=== PATIENT | male | born 1995 | race Caucasian/White ===

== ENCOUNTER 2016-06-28 11:48 | Emergency (ER) | payer BC ==
--- NOTE | 2016-06-28 12:00 | ER Document Report ---
ED Medical Screen (RME) - General Stated Complaint: BACK/SHOULDER PAIN Notes: Arm and shoulder pain feels like he may have a depleted sodium. I greeted and performed a rapid initial assessment of this patient. Comprehensive ED assessment and evaluation of the patient, analysis of test results and completion of the medical decision making process will be conducted by additional ED providers. TRAVEL OUTSIDE OF THE [place] IN LAST 30 DAYS: No COUNTRY TRAVELED TO/FROM: [facility] - Related Data Allergies/Adverse Reactions: latex [Latex] Allergy (Mild, Verified 04/20/16 14:04) ITCHY RASH Sulfa (Sulfonamide Antibiotics) Allergy (Verified 04/20/16 14:04) RASH Past Medical History - Past Medical History Cardiac Medical History: Denies: Hx Heart Attack, Hx Hypertension Pulmonary Medical History: Denies: Hx Asthma Neurological Medical History: Reports: Hx Seizures - welbutrin in july. Denies : Hx Cerebrovascular Accident GI Medical History: Denies: Hx Hepatitis, Hx Hiatal Hernia, Hx Ulcer Musculoskeltal Medical History: Reports Hx Musculoskeletal Trauma - elbow left at 7 Traumatic Medical History: Reports: Hx Fractures Infectious Medical History: Denies: Hx Hepatitis Past Surgical History: Reports: Hx Orthopedic Surgery, Hx Tonsillectomy - had strep and flu the week before. Denies: Hx Open Heart Surgery, Hx Pacemaker - Immunizations Immunizations up to date: Yes Hx Diphtheria, Pertussis, Tetanus Vaccination: Yes Physical Exam - Vital signs Vitals: Temp Pulse Resp BP Pulse Ox 98.0 F 82 16 128/72 H 100 06/28/16 11:56 06/28/16 11:56 06/28/16 11:56 06/28/16 11:56 06/28/16 11:56 Course - Vital Signs Vital signs: Temp Pulse Resp BP Pulse Ox 98.0 F 82 16 128/72 H 100 06/28/16 11:56 06/28/16 11:56 06/28/16 11:56 06/28/16 11:56 06/28/16 11:56
[2016-06-28 12:40] LABS: ALANINE AMINOTRANSFERASE 27 U/L (21-72); ALBUMIN 4.8 g/dL (3.5-5.0); ALKALINE PHOSPHATASE 64 U/L (38-126); ANION GAP 12 (5-19); ASPARTATE AMINO TRANSFERASE 20 U/L (17-59); BILIRUBIN,TOTAL 0.9 mg/dL (0.2-1.3); BLOOD UREA NITROGEN 6 mg/dL (7-20); CALCIUM 10.1 mg/dL (8.4-10.2); CARBON DIOXIDE 29 mmol/L (22-30); CHLORIDE 102 mmol/L (98-107); GLUCOSE 104 mg/dL (75-110); POTASSIUM 4.5 mmol/L (3.6-5.0); SODIUM 142.6 mmol/L (137-145); TOTAL PROTEIN 8.4 g/dL (6.3-8.2)
--- NOTE | 2016-06-28 12:40 | ER Document Report ---
HPI - HPI Patient complains to provider of: body pains, concern about electrolytes Onset: This afternoon Onset/Duration: Gradual Quality of pain: Achy Pain Level: 1 Context: Patient states that he had taken Vyvanse yesterday that was not prescribed to him that he bought off the street. Patient states today that he was very thirsty and drank to 24 ounces of water followed by 24 ounces of juice. Patient states shortly after that he had increased urination. Patient is concerned that he may have an abnormal potassium or sodium level. Patient additionally complains of left elbow pain and right upper back pain. Patient denies any cough or cold symptoms. Patient admits to smoking marijuana and cigarettes but denies any alcohol or other illicit drug use aside from occasional medications that he takes to treat his ADHD. Patient states that periodically he will take Adderall or Vyvanse that he can buy off the street but is uncertain of the purity of the medications that he buys. Patient states that he does a lot of research and that even though he is not prescribed the medications he is taking it to treat his ADHD because he does not like the side effects that the Strattera, he is prescribed, gives him. Patient does report an episode of feeling like his heart was racing earlier today, but states that has now resolved. Associated Symptoms: Body/muscle aches Exacerbated by: Denies Relieved by: Denies Similar symptoms previously: Yes Recently seen / treated by doctor: No - ROS ROS below otherwise negative: Yes Systems Reviewed and Negative: Yes All other systems reviewed and negative - CONSTITUTIONAL Constitutional: DENIES: Fever, Chills - EENT EENT: DENIES: Sore Throat - NEURO Neurology: DENIES: Headache - RESPIRATORY Respiratory: DENIES: Trouble Breathing, Coughing - GASTROINTESTINAL Gastrointestinal: DENIES: Nausea - MUSCULOSKELETAL Musculoskeletal: REPORTS: Extremity pain, Back Pain - DERM Skin Color: Normal Past Medical History - General Information source: Patient - Social History Smoking Status: Current Every Day Smoker Chew tobacco use (# tins/day): No Frequency of alcohol use: Social Drug Abuse: Marijuana Lives with: Family Family History: COPD, Malignancy Patient has suicidal ideation: No Patient has homicidal ideation: No - Past Medical History Cardiac Medical History: Denies: Hx Heart Attack, Hx Hypertension Pulmonary Medical History: Denies: Hx Asthma Neurological Medical History: Reports: Hx Seizures - welbutrin in july. Denies : Hx Cerebrovascular Accident Renal/ Medical History: Denies: Hx Peritoneal Dialysis GI Medical History: Denies: Hx Hepatitis, Hx Hiatal Hernia, Hx Ulcer Musculoskeltal Medical History: Reports Hx Musculoskeletal Trauma - elbow left at 7 Psychiatric Medical History: Reports: Hx Attention Deficit Hyperactivity Disorder Traumatic Medical History: Reports: Hx Fractures Infectious Medical History: Denies: Hx Hepatitis Past Surgical History: Reports: Hx Orthopedic Surgery, Hx Tonsillectomy - had strep and flu the week before. Denies: Hx Open Heart Surgery, Hx Pacemaker - Immunizations Immunizations up to date: Yes Hx Diphtheria, Pertussis, Tetanus Vaccination: Yes Vertical Provider Document - CONSTITUTIONAL Agree With Documented VS: Yes Exam Limitations: No Limitations General Appearance: WD/WN, No Apparent Distress - INFECTION CONTROL TRAVEL OUTSIDE OF THE [place] IN LAST 30 DAYS: No - HEENT HEENT: Atraumatic, Normocephalic. negative: Pharyngeal Exudate, Pharyngeal Tenderness, Pharyngeal Erythema, Tympanic Membrane Red, Tympanic Membrane Bulging - NECK Neck: Normal Inspection, Supple. negative: Lymphadenopathy-Left, Lymphadenopathy-Right Notes: No meningismus - RESPIRATORY Respiratory: Breath Sounds Normal, No Respiratory Distress, Chest Non-Tender O2 Sat by Pulse Oximetry: 100 - CARDIOVASCULAR Cardiovascular: Regular Rate, Regular Rhythm, No Murmur Pulses: Normal: Radial - BACK Back: Normal Inspection. negative: CVA Tenderness-Right, CVA Tenderness-Left Notes: Patient with mild tenderness with palpation of right upper thoracic back area, tenderness reproduced with palpation. Normal skin color and temperature overlying area tenderness. - MUSCULOSKELETAL/EXTREMETIES Musculoskeletal/Extremeties: MAEW, FROM, Tender - Mild tenderness to left elbow , patient with full range of motion. Patient with scars from previous surgery. Normal skin color and temperature overlying joint - NEURO Level of Consciousness: Awake, Alert, Appropriate Motor/Sensory: No Motor Deficit - DERM Integumentary: Warm, Dry Course - Re-evaluation Re-evalutation: 06/28/16 14:52 Patient reports that his symptoms have improved. Patient states that he just wanted to come to get checked because he was urinating so much this morning after drinking all of his oral fluids. Discussed with patient avoiding taking medications that are not prescribed to him that he buys off the street. Patient advised to follow-up with his mental health provider if he is needing different treatment for his ADHD symptoms. - Vital Signs Vital signs: Temp Pulse Resp BP Pulse Ox 98.0 F 82 16 128/72 H 100 06/28/16 11:56 06/28/16 11:56 06/28/16 11:56 06/28/16 11:56 06/28/16 11:56 - Laboratory Result Diagrams: 06/28/16 12:05 06/28/16 12:05 Laboratory results interpreted by me: 06/28/16 14:53 Labs- Entire Visit 06/28/16 06/28/16 06/28/16 12:05 12:05 13:51 WBC 10.0 RBC 4.85 Hgb 15.5 Hct 45.3 MCV 93 MCH 31.9 MCHC 34.2 RDW 13.2 Plt Count 233 Seg Neutrophils % 69.8 Lymphocytes % 19.3 Monocytes % 7.7 Eosinophils % 3.1 Basophils % 0.1 Absolute Neutrophils 7.0 Absolute Lymphocytes 1.9 Absolute Monocytes 0.8 Absolute Eosinophils 0.3 Absolute Basophils 0.0 Sodium 142.6 Potassium 4.5 Chloride 102 Carbon Dioxide 29 Anion Gap 12 BUN 6 L Creatinine 0.80 Est GFR ( Amer) > 60 Est GFR (Non-Af Amer) > 60 Glucose 104 Calcium 10.1 Total Bilirubin 0.9 Direct Bilirubin 0.0 AST 20 ALT 27 Alkaline Phosphatase 64 Total Protein 8.4 H Albumin 4.8 Urine Color YELLOW Urine Appearance CLOUDY Urine pH 7.0 Ur Specific Hardy 1.009 Urine Protein NEGATIVE Urine Glucose (UA) NEGATIVE Urine Ketones NEGATIVE Urine Blood NEGATIVE Urine Nitrite NEGATIVE Urine Bilirubin NEGATIVE Urine Urobilinogen NEGATIVE Ur Leukocyte Esterase NEGATIVE Urine WBC (Auto) 3 Urine RBC (Auto) 1 Amorphous Sediment Auto TRACE Urine Mucus (Auto) RARE Urine Ascorbic Acid NEGATIVE Urine Opiates Screen Urine Methadone Screen Ur Barbiturates Screen Ur Phencyclidine Scrn Ur Amphetamines Screen U Benzodiazepines Scrn Urine Cocaine Screen U Marijuana (THC) Screen 06/28/16 13:51 WBC RBC Hgb Hct MCV MCH MCHC RDW Plt Count Seg Neutrophils % Lymphocytes % Monocytes % Eosinophils % Basophils % Absolute Neutrophils Absolute Lymphocytes Absolute Monocytes Absolute Eosinophils Absolute Basophils Sodium Potassium Chloride Carbon Dioxide Anion Gap BUN Creatinine Est GFR ( Amer) Est GFR (Non-Af Amer) Glucose Calcium Total Bilirubin Direct Bilirubin AST ALT Alkaline Phosphatase Total Protein Albumin Urine Color Urine Appearance Urine pH Ur Specific Hardy Urine Protein Urine Glucose (UA) Urine Ketones Urine Blood Urine Nitrite Urine Bilirubin Urine Urobilinogen Ur Leukocyte Esterase Urine WBC (Auto) Urine RBC (Auto) Amorphous Sediment Auto Urine Mucus (Auto) Urine Ascorbic Acid Urine Opiates Screen NEGATIVE Urine Methadone Screen NEGATIVE Ur Barbiturates Screen NEGATIVE Ur Phencyclidine Scrn NEGATIVE Ur Amphetamines Screen NEGATIVE U Benzodiazepines Scrn NEGATIVE Urine Cocaine Screen NEGATIVE U Marijuana (THC) Screen UNCONFIRMED POSITIVE 06/28/16 18:50 - EKG Interpretation by Me EKG shows normal: Sinus rhythm Rate: Normal Rhythm: NSR Discharge - Discharge Clinical Impression: Myalgia, concern about electrolyte abnormality Condition: Stable Disposition: HOME, SELF-CARE Instructions: Myalagia (Muscle Pain) ([facility]), Normal Exam and Workup ([facility]) Additional Instructions: Return immediately for any new or worsening symptoms Followup with your primary care provider, LATRICE, call tomorrow to make a followup appointment Follow-up with your mental health provider Do not take medications that are not prescribed to you. Referrals: MIKHAIL RAMOS MD [Primary Care Provider] - Follow up as needed
[2016-06-28 12:57] LABS: ABSOLUTE EOSINOPHILS # (AUTO) 0.3 10^3/uL (0.0-0.6); ABSOLUTE LYMPHOCYTES (AUTO) 1.9 10^3/uL (0.5-4.7); ABSOLUTE MONOCYTES (AUTO) 0.8 10^3/uL (0.1-1.4); BASOPHILS % (AUTO) 0.1 % (0-2); EOSINOPHILS % (AUTO) 3.1 % (0-6); HEMATOCRIT 45.3 % (37.9-51.0); HEMOGLOBIN 15.5 g/dL (13.5-17.0); HGB HCT DIFFERENCE 1.2; LYMPHOCYTES % (AUTO) 19.3 % (13-45); MEAN CORPUSCULAR HEMOGLOBIN 31.9 pg (27.0-33.4); MEAN CORPUSCULAR HGB CONC 34.2 g/dL (32.0-36.0); MEAN CORPUSCULAR VOLUME 93 fl (80-97); MONOCYTES % (AUTO) 7.7 % (3-13); RED BLOOD COUNT 4.85 10^6/uL (4.35-5.55); RED CELL DISTRIBUTION WIDTH 13.2 % (11.5-14.0); SEGMENTED NEUTROPHILS % (AUTO) 69.8 % (42-78)
[2016-06-28 14:11] LABS: AMORPHOUS SEDIMENT,URINE TRACE /HPF; APPEARANCE,URINE CLOUDY; BILIRUBIN,URINE NEGATIVE (NEGATIVE); GLUCOSE, URINE NEGATIVE (NEGATIVE); KETONES,URINE NEGATIVE (NEGATIVE); LEUKOCYTE ESTERASE,URINE NEGATIVE (NEGATIVE); NITRITE,URINE NEGATIVE (NEGATIVE); PROTEIN,URINE NEGATIVE (NEGATIVE); URINE SPECIFIC GRAVITY 1.009; UROBILINOGEN,URINE NEGATIVE mg/dL (<2.0)
[2016-06-28 14:30] LABS: URINE BARBITURATES SCREEN NEGATIVE; URINE METHADONE SCREEN NEGATIVE; URINE OPIATES LOW NEGATIVE; URINE PHENCYCLIDINE SCREEN NEGATIVE
[2016-06-28 15:03] VITALS: BP 116/70
--- NOTE | 2016-06-28 22:53 | EKG REPORT ---
SEVERITY:- NORMAL ECG - SINUS RHYTHM : Confirmed by: Nathalie Thakkar MD 28-Jun-2016 22:52:42
== END 2016-06-28 14:58 | disposition home or self-care (01) ==
LOC: ER 11:48
DX: M79.1 Myalgia (principal); R35.0 Frequency of micturition; M54.89 Other dorsalgia; M79.609 Pain in unspecified limb; F17.200 Nicotine dependence, unspecified, uncomplicated; F90.9 Attention-deficit hyperactivity disorder, unspecified type
CPT/HCPCS: 36415; 80053; 80307; 81001; 85025; 93005; 93010; 99283

== ENCOUNTER 2016-07-19 05:27 | Emergency (ER) | payer BC ==
[2016-07-19] MEDS ORDERED: DEXAMETHASONE 4 MG TABLET PO ONE (08:18)
--- NOTE | 2016-07-19 08:18 | ER Document Report ---
ED General - General Chief Complaint: Flu Symptoms Stated Complaint: HEADACHE,COUGH,SORE THROAT TRAVEL OUTSIDE OF THE [place] IN LAST 30 DAYS: No COUNTRY TRAVELED TO/FROM: [facility] Patient complains to provider of: sore throat fevers chills myalgias Notes: Patient coming in for flulike symptoms ongoing for the past week. Patient states he did travel to the [facility] return in January. No other foreign travel. Patient states no other sick contacts. Patient states history of chronic strep infections. Patient states he did recently have some amoxicillin took 2 doses and they're finished up his prescription for amoxicillin for strep. Flu shot was not today. Patient also complains of some trouble with concentrating possible short-term memory loss been ongoing for months states he has been evaluated by his PCP has been referred to a psychiatrist further evaluation. Patient states today's the symptoms "are the best they have been" denies any fevers chills nausea vomiting - Related Data Allergies/Adverse Reactions: latex [Latex] Allergy (Mild, Verified 06/28/16 12:01) ITCHY RASH Sulfa (Sulfonamide Antibiotics) Allergy (Verified 06/28/16 12:01) RASH Past Medical History - Social History Smoking Status: Current Every Day Smoker Frequency of alcohol use: Social Drug Abuse: Marijuana Family History: COPD, Malignancy - Past Medical History Cardiac Medical History: Denies: Hx Heart Attack, Hx Hypertension Pulmonary Medical History: Denies: Hx Asthma Neurological Medical History: Reports: Hx Seizures - welbutrin in july. Denies : Hx Cerebrovascular Accident Renal/ Medical History: Denies: Hx Peritoneal Dialysis GI Medical History: Denies: Hx Hepatitis, Hx Hiatal Hernia, Hx Ulcer Musculoskeltal Medical History: Reports Hx Musculoskeletal Trauma - elbow left at 7 Psychiatric Medical History: Reports: Hx Attention Deficit Hyperactivity Disorder Traumatic Medical History: Reports: Hx Fractures Infectious Medical History: Denies: Hx Hepatitis Past Surgical History: Reports: Hx Orthopedic Surgery, Hx Tonsillectomy - had strep and flu the week before. Denies: Hx Open Heart Surgery, Hx Pacemaker - Immunizations Immunizations up to date: Yes Hx Diphtheria, Pertussis, Tetanus Vaccination: Yes Review of Systems - Review of Systems Constitutional: Fever, Malaise EENT: Throat pain Cardiovascular: No symptoms reported Respiratory: No symptoms reported Gastrointestinal: No symptoms reported Genitourinary: No symptoms reported Male Genitourinary: No symptoms reported Musculoskeletal: Other - Myalgias Skin: No symptoms reported Hematologic/Lymphatic: No symptoms reported Neurological/Psychological: No symptoms reported -: Yes All other systems reviewed and negative Physical Exam - Vital signs Vitals: Temp Pulse Resp BP Pulse Ox 97.9 F 96 17 134/74 H 96 07/19/16 05:31 07/19/16 05:31 07/19/16 05:31 07/19/16 05:31 07/19/16 05:31 Interpretation: Normal - General General appearance: Appears well, Alert - HEENT Head: Normocephalic, Atraumatic Eyes: Normal Conjunctiva: Normal Cornea: Normal Extraocular movements intact: Yes Eyelashes: Normal Pupils: PERRL Anterior chamber: Normal Ears: Normal External canal: Normal Tympanic membrane: Normal Sinus: Normal Nasal: Normal Mouth/Lips: Normal Mucous membranes: Normal Pharynx: Erythema Neck: Normal - Respiratory Respiratory status: No respiratory distress Chest status: Nontender Breath sounds: Normal Chest palpation: Normal - Cardiovascular Rhythm: Regular Heart sounds: Normal auscultation Murmur: No - Abdominal Inspection: Normal Distension: No distension Bowel sounds: Normal Tenderness: Nontender Organomegaly: No organomegaly - Back Back: Normal, Nontender - Extremities General upper extremity: Normal inspection, Nontender, Normal color, Normal ROM , Normal temperature General lower extremity: Normal inspection, Nontender, Normal color, Normal ROM , Normal temperature, Normal weight bearing. No: Miryam's sign - Neurological Neuro grossly intact: Yes Cognition: Normal Orientation: AAOx4 [place] Coma Scale Eye Opening: Spontaneous [place] Coma Scale Verbal: Oriented [place] Coma Scale Motor: Obeys Commands [place] Coma Scale Total: 15 Speech: Normal Motor strength normal: LUE, RUE, LLE, RLE Sensory: Normal - Psychological Associated symptoms: Normal affect, Normal mood - Skin Skin Temperature: Warm Skin Moisture: Dry Skin Color: Normal Course - Re-evaluation Re-evalutation: 07/19/16 08:50 Patient more likely has viral etiology for his symptoms. Encouraged follow-up with his primary care physician. Decubitus Decadron 8 and sore throat. Patient is to use Tylenol Motrin for pain control patient stay well hydrated. Patient will be discharged home - Vital Signs Vital signs: Temp Pulse Resp BP Pulse Ox 98.0 F 78 13 114/61 97 07/19/16 08:24 07/19/16 08:24 07/19/16 08:24 07/19/16 08:24 07/19/16 08:24 Discharge - Discharge Clinical Impression: Flu-like symptoms, Sore throat (viral) Condition: Good Disposition: HOME, SELF-CARE Instructions: Viral Syndrome ([facility]), Upper Respiratory Illness ([facility]) Additional Instructions: More likely you are suffering from a viral etiology. Return to ER symptoms worsen. You may take Tylenol Motrin for pain control. Will give you a dose of steroids today to help out with your throat pain. He can expect to feel unwell for the next 4-5 days. Please follow-up with your primary care physician.
[2016-07-19 08:25] VITALS: BP 114/61
== END 2016-07-19 08:25 | disposition home or self-care (01) ==
LOC: ER 05:27
DX: J02.8 Acute pharyngitis due to other specified organisms (principal); B97.89 Other viral agents as the cause of diseases classified elsewhere; R50.9 Fever, unspecified; R53.81 Other malaise; M79.1 Myalgia; R29.818 Other symptoms and signs involving the nervous system; F17.200 Nicotine dependence, unspecified, uncomplicated; Z88.2 Allergy status to sulfonamides; Z91.040 Latex allergy status; R00.0 Tachycardia, unspecified; Z53.20 Procedure and treatment not carried out because of patient's decision for unspecified reasons
CPT/HCPCS: 71020; 87070; 87804; 87880; 93005; 93010; 99281; 99283

== ENCOUNTER 2016-07-19 12:49 | Emergency (ER) | payer BC ==
[2016-07-19 12:54] VITALS: BP 140/76
--- NOTE | 2016-07-19 12:56 | ER Document Report ---
ED Medical Screen (RME) - General Stated Complaint: CHEST PAIN Mode of Arrival: Ambulatory Notes: Patient complains of tachycardia that started today. Patient was given a prescription for steroid feels symptoms are related to this medication. Patient was being treated for viral infection. I have greeted and performed a rapid initial assessment of this patient. A comprehensive ED assessment and evaluation of the patient, analysis of test results and completion of the medical decision making process will be conducted by additional ED providers. TRAVEL OUTSIDE OF THE [place] IN LAST 30 DAYS: No - Related Data Allergies/Adverse Reactions: latex [Latex] Allergy (Mild, Verified 07/19/16 12:54) ITCHY RASH Sulfa (Sulfonamide Antibiotics) Allergy (Verified 07/19/16 12:54) RASH Past Medical History - Past Medical History Cardiac Medical History: Denies: Hx Heart Attack, Hx Hypertension Pulmonary Medical History: Denies: Hx Asthma Neurological Medical History: Reports: Hx Seizures - welbutrin in july. Denies : Hx Cerebrovascular Accident Renal/ Medical History: Denies: Hx Peritoneal Dialysis GI Medical History: Denies: Hx Hepatitis, Hx Hiatal Hernia, Hx Ulcer Musculoskeltal Medical History: Reports Hx Musculoskeletal Trauma - elbow left at 7 Psychiatric Medical History: Reports: Hx Attention Deficit Hyperactivity Disorder Traumatic Medical History: Reports: Hx Fractures Infectious Medical History: Denies: Hx Hepatitis Past Surgical History: Reports: Hx Orthopedic Surgery, Hx Tonsillectomy - had strep and flu the week before. Denies: Hx Open Heart Surgery, Hx Pacemaker - Immunizations Immunizations up to date: Yes Hx Diphtheria, Pertussis, Tetanus Vaccination: Yes Physical Exam - Cardiovascular Rhythm: Tachycardia Heart sounds: S1 appreciated, S2 appreciated
--- NOTE | 2016-07-19 21:52 | EKG REPORT ---
SEVERITY:- OTHERWISE NORMAL ECG - SINUS TACHYCARDIA : Confirmed by: Delores Stewart 19-Jul-2016 21:51:40
== END 2016-07-19 14:10 | disposition left against medical advice (07) ==
LOC: ER 12:49
DX: R00.0 Tachycardia, unspecified (principal); B34.9 Viral infection, unspecified; Z88.2 Allergy status to sulfonamides; Z91.040 Latex allergy status; Z53.20 Procedure and treatment not carried out because of patient's decision for unspecified reasons
CPT/HCPCS: 71020; 93005; 93010; 99281

== ENCOUNTER 2016-07-21 11:36 | Emergency (ER) | payer BC ==
--- NOTE | 2016-07-21 11:57 | ER Document Report ---
ED Medical Screen (RME) - General Stated Complaint: LEFT ARM,SHOULDER PAIN,HEADACHE Mode of Arrival: Ambulatory Information source: Patient Notes: Patient complains of tachycardia for the past few days. Patient states he has had Adderall but has also taken Decadron. Patient complains of numbness to right lower leg. Patient complains of generalized fatigue. Patient complains of nausea. I have greeted and performed a rapid initial assessment of this patient. A comprehensive ED assessment and evaluation of the patient, analysis of test results and completion of the medical decision making process will be conducted by additional ED providers. TRAVEL OUTSIDE OF THE [place] IN LAST 30 DAYS: No - Related Data Allergies/Adverse Reactions: latex [Latex] Allergy (Mild, Verified 07/21/16 11:54) ITCHY RASH Sulfa (Sulfonamide Antibiotics) Allergy (Verified 07/21/16 11:54) RASH Past Medical History - Past Medical History Cardiac Medical History: Denies: Hx Heart Attack, Hx Hypertension Pulmonary Medical History: Denies: Hx Asthma Neurological Medical History: Reports: Hx Seizures - welbutrin in july. Denies : Hx Cerebrovascular Accident Renal/ Medical History: Denies: Hx Peritoneal Dialysis GI Medical History: Denies: Hx Hepatitis, Hx Hiatal Hernia, Hx Ulcer Musculoskeltal Medical History: Reports Hx Musculoskeletal Trauma - elbow left at 7 Psychiatric Medical History: Reports: Hx Attention Deficit Hyperactivity Disorder Traumatic Medical History: Reports: Hx Fractures Infectious Medical History: Denies: Hx Hepatitis Past Surgical History: Reports: Hx Orthopedic Surgery, Hx Tonsillectomy - had strep and flu the week before. Denies: Hx Open Heart Surgery, Hx Pacemaker - Immunizations Immunizations up to date: Yes Hx Diphtheria, Pertussis, Tetanus Vaccination: Yes Physical Exam - Vital signs Vitals: Temp Pulse Resp BP Pulse Ox 97.6 F 106 H 14 127/67 H 100 07/21/16 11:39 07/21/16 11:39 07/21/16 11:39 07/21/16 11:39 07/21/16 11:39 - Cardiovascular Rhythm: Tachycardia - 104 Heart sounds: S1 appreciated, S2 appreciated Course - Vital Signs Vital signs: Temp Pulse Resp BP Pulse Ox 97.6 F 106 H 14 127/67 H 100 07/21/16 11:39 07/21/16 11:39 07/21/16 11:39 07/21/16 11:39 07/21/16 11:39
[2016-07-21 12:35] LABS: ABSOLUTE EOSINOPHILS # (AUTO) 0.1 10^3/uL (0.0-0.6); ABSOLUTE LYMPHOCYTES (AUTO) 1.6 10^3/uL (0.5-4.7); ABSOLUTE MONOCYTES (AUTO) 0.9 10^3/uL (0.1-1.4); ABSOLUTE NEUT (AUTO) 5.4 10^3/uL (1.7-8.2); BASOPHILS % (AUTO) 0.3 % (0-2); EOSINOPHILS % (AUTO) 1.8 % (0-6); HEMATOCRIT 42.2 % (37.9-51.0); HEMOGLOBIN 14.8 g/dL (13.5-17.0); HGB HCT DIFFERENCE 2.2; LYMPHOCYTES % (AUTO) 20.2 % (13-45); MEAN CORPUSCULAR HEMOGLOBIN 32.4 pg (27.0-33.4); MEAN CORPUSCULAR HGB CONC 35.1 g/dL (32.0-36.0); MEAN CORPUSCULAR VOLUME 92 fl (80-97); RED BLOOD COUNT 4.57 10^6/uL (4.35-5.55); RED CELL DISTRIBUTION WIDTH 13.1 % (11.5-14.0); SEGMENTED NEUTROPHILS % (AUTO) 66.7 % (42-78); WHITE BLOOD COUNT 8.1 10^3/uL (4.0-10.5)
[2016-07-21 12:37] LABS: AMORPHOUS SEDIMENT,URINE TRACE /HPF; APPEARANCE,URINE TURBID; BILIRUBIN,URINE NEGATIVE (NEGATIVE); GLUCOSE, URINE NEGATIVE (NEGATIVE); KETONES,URINE NEGATIVE (NEGATIVE); LEUKOCYTE ESTERASE,URINE NEGATIVE (NEGATIVE); NITRITE,URINE NEGATIVE (NEGATIVE); PROTEIN,URINE NEGATIVE (NEGATIVE); URINE SPECIFIC GRAVITY 1.017; UROBILINOGEN,URINE NEGATIVE mg/dL (<2.0)
[2016-07-21 12:44] LABS: ALANINE AMINOTRANSFERASE 27 U/L (21-72); ALBUMIN 4.8 g/dL (3.5-5.0); ALKALINE PHOSPHATASE 50 U/L (38-126); ANION GAP 11 (5-19); ASPARTATE AMINO TRANSFERASE 18 U/L (17-59); BLOOD UREA NITROGEN 14 mg/dL (7-20); CALCIUM 10.1 mg/dL (8.4-10.2); CARBON DIOXIDE 30 mmol/L (22-30); CHLORIDE 102 mmol/L (98-107); CREATININE RESULT 0.85 mg/dL (0.52-1.25); GLUCOSE 67 mg/dL (75-110); POTASSIUM 4.6 mmol/L (3.6-5.0); SODIUM 142.8 mmol/L (137-145); TOTAL PROTEIN 7.7 g/dL (6.3-8.2)
[2016-07-21 12:50] LABS: URINE BARBITURATES SCREEN NEGATIVE; URINE METHADONE SCREEN NEGATIVE; URINE OPIATES LOW NEGATIVE; URINE PHENCYCLIDINE SCREEN NEGATIVE
--- NOTE | 2016-07-21 14:13 | ER Document Report ---
ED General - General Chief Complaint: Palpitations Stated Complaint: LEFT ARM,SHOULDER PAIN,HEADACHE Mode of Arrival: Ambulatory Information source: Patient Notes: 20 yr old male with hx of anxiety and sore throat presents with concerns of drug interaction between the decadron given 2 days ago and the adderal he is coming off of 2 days ago. pt notes palpitations, right foot paresthesia. TRAVEL OUTSIDE OF THE [place] IN LAST 30 DAYS: No - HPI Onset: Just prior to arrival Onset/Duration: Sudden Quality of pain: No pain Severity: Mild Pain Level: 1 Associated symptoms: Other Exacerbated by: Denies Relieved by: Denies Similar symptoms previously: Yes Recently seen / treated by doctor: Yes - Related Data Allergies/Adverse Reactions: latex [Latex] Allergy (Mild, Verified 07/21/16 11:54) ITCHY RASH Sulfa (Sulfonamide Antibiotics) Allergy (Verified 07/21/16 11:54) RASH Past Medical History - General Information source: Patient - Social History Smoking Status: Current Every Day Smoker Cigarette use (# per day): No Chew tobacco use (# tins/day): Yes Smoking Education Provided: No Family History: COPD, Malignancy Patient has suicidal ideation: No Patient has homicidal ideation: No - Past Medical History Cardiac Medical History: Denies: Hx Heart Attack, Hx Hypertension Pulmonary Medical History: Denies: Hx Asthma Neurological Medical History: Reports: Hx Seizures - welbutrin in july. Denies : Hx Cerebrovascular Accident Renal/ Medical History: Denies: Hx Peritoneal Dialysis GI Medical History: Denies: Hx Hepatitis, Hx Hiatal Hernia, Hx Ulcer Musculoskeltal Medical History: Reports Hx Musculoskeletal Trauma - elbow left at 6 Psychiatric Medical History: Reports: Hx Attention Deficit Hyperactivity Disorder Traumatic Medical History: Reports: Hx Fractures Infectious Medical History: Denies: Hx Hepatitis Past Surgical History: Reports: Hx Orthopedic Surgery, Hx Tonsillectomy - had strep and flu the week before. Denies: Hx Open Heart Surgery, Hx Pacemaker - Immunizations Immunizations up to date: Yes Hx Diphtheria, Pertussis, Tetanus Vaccination: Yes Review of Systems - Review of Systems Notes: REVIEW OF SYSTEMS: CONSTITUTIONAL : Denies fever, chills, or sweats. Denies recent illness. EENT: admits to sore throat CARDIOVASCULAR: Denies chest pain. Denies palpitations or racing or irregular heart beat. Denies ankle edema. RESPIRATORY: Denies cough, cold, or chest congestion. Denies shortness of breath, difficulty breathing, or wheezing. GASTROINTESTINAL: Denies abdominal pain or distention. Denies nausea, vomiting , or diarrhea. Denies blood in vomitus, stools, or per rectum. Denies black, tarry stools. Denies constipation. GENITOURINARY: Denies difficulty urinating, painful urination, burning, frequency, blood in urine, or discharge. MUSCULOSKELETAL: Denies back or neck pain or stiffness. Denies joint pain or swelling. SKIN: Denies rash, lesions or sores. HEMATOLOGIC : Denies easy bruising or bleeding. LYMPHATIC: Denies swollen, enlarged glands. NEUROLOGICAL: paresthesia right leg PSYCHIATRIC: Denies anxiety or stress. Denies depression, suicidal ideation, or homicidal ideation. ALL OTHER SYSTEMS REVIEWED AND NEGATIVE. Dictation was performed using [employer] voice recognition software PHYSICAL EXAMINATION: GENERAL: Well-appearing, well-nourished and in no acute distress. HEAD: Atraumatic, normocephalic. EYES: Pupils equal round and reactive to light, extraocular movements intact, sclera anicteric, conjunctiva are normal. ENT: Nares patent, oropharynx clear without exudates. Moist mucous membranes. NECK: Normal range of motion, supple without lymphadenopathy LUNGS: Breath sounds clear to auscultation bilaterally and equal. No wheezes rales or rhonchi. HEART: Regular rate and rhythm without murmurs ABDOMEN: Soft, nontender, nondistended abdomen. No guarding, no rebound. No masses appreciated. Musculoskeletal: Normal range of motion, no pitting or edema. No cyanosis. NEUROLOGICAL: Cranial nerves grossly intact. Normal speech, normal gait. Normal sensory, motor exams PSYCH: Normal mood, normal affect. SKIN: right leg post surgical changes Physical Exam - Vital signs Vitals: Temp Pulse Resp BP Pulse Ox 97.6 F 106 H 14 127/67 H 100 07/21/16 11:39 07/21/16 11:39 07/21/16 11:39 07/21/16 11:39 07/21/16 11:39 Course - Re-evaluation Re-evalutation: 07/21/16 14:11 Physical examination notes no significant abnormality, patient appears to have anxiety and this is a component of it. I do not believe there is any interaction between the Adderall that he is off of as well as the Decadron that he was given. Patient looks well is resting comfortably vital signs are stable and is in no distress After performing a Medical Screening Examination, I estimate there is LOW risk for ACUTE CORONARY SYNDROME, RESPIRATORY FAILURE, SEPSIS OR MENINGITIS, thus I consider the discharge disposition reasonable. The patient and I have discussed the diagnosis and risks, and we agree with discharging home with close follow- up. We also discussed returning to the Emergency Department immediately if new or worsening symptoms occur. We have discussed the symptoms which are most concerning (e.g., changing or worsening pain, trouble swallowing or breathing, neck stiffness, fever) that necessitate immediate return. - Vital Signs Vital signs: Temp Pulse Resp BP Pulse Ox 97.6 F 106 H 14 127/67 H 100 07/21/16 11:39 07/21/16 11:39 07/21/16 11:39 07/21/16 11:39 07/21/16 11:39 - Laboratory Result Diagrams: 07/21/16 12:05 07/21/16 12:05 Laboratory results interpreted by me: 07/21/16 07/21/16 12:05 12:05 Glucose 67 L Urine Ascorbic Acid 20 H Discharge - Discharge Clinical Impression: Medication reaction Condition: Stable Disposition: HOME, SELF-CARE Instructions: Palpitations (Irregular or Rapid Heartrate) ([facility]) Additional Instructions: Follow up with your physician tomorrow for further care or return to the ED IMMEDIATELY if symptoms worsen or new concerns occur
[2016-07-21 14:31] VITALS: BP 106/58
--- NOTE | 2016-07-21 22:00 | EKG REPORT ---
SEVERITY:- NORMAL ECG - SINUS RHYTHM : Confirmed by: Nathalie Thakkar MD 21-Jul-2016 21:59:34
== END 2016-07-21 14:20 | disposition home or self-care (01) ==
LOC: ER 11:36
DX: R00.2 Palpitations (principal); R20.2 Paresthesia of skin; T50.905A Adverse effect of unspecified drugs, medicaments and biological substances, initial encounter; J02.9 Acute pharyngitis, unspecified; F17.200 Nicotine dependence, unspecified, uncomplicated; Z88.2 Allergy status to sulfonamides; Z91.040 Latex allergy status; Z98.890 Other specified postprocedural states
CPT/HCPCS: 36415; 80053; 80307; 81001; 85025; 93005; 93010; 99285

== ENCOUNTER 2016-07-25 14:35 | Emergency (ER) | payer BC ==
--- NOTE | 2016-07-25 14:51 | ER Document Report ---
ED Medical Screen (RME) - General Stated Complaint: WEAKNESS Notes: 20 yo male c/o chronic weakness, headache, blurred vision, ear pain, sore throat , rash, swollen lymph nodes, cough, palpitations, abdominal pain, constipation/ diarrhea, dysuria, joint pain, intermittant fevers, chills, and fatigue. Pt seen on 07/21 for same and twice on 07/19 for same followed by [facility] pt is concerned he might have Lyme Dz TRAVEL OUTSIDE OF THE [place] IN LAST 30 DAYS: No - Related Data Allergies/Adverse Reactions: latex [Latex] Allergy (Mild, Verified 07/21/16 11:54) ITCHY RASH Sulfa (Sulfonamide Antibiotics) Allergy (Verified 07/21/16 11:54) RASH Past Medical History - Past Medical History Cardiac Medical History: Denies: Hx Heart Attack, Hx Hypertension Pulmonary Medical History: Denies: Hx Asthma Neurological Medical History: Reports: Hx Seizures - welbutrin in july. Denies : Hx Cerebrovascular Accident Renal/ Medical History: Denies: Hx Peritoneal Dialysis GI Medical History: Denies: Hx Hepatitis, Hx Hiatal Hernia, Hx Ulcer Musculoskeltal Medical History: Reports Hx Musculoskeletal Trauma - elbow left at 6 Psychiatric Medical History: Reports: Hx Attention Deficit Hyperactivity Disorder Traumatic Medical History: Reports: Hx Fractures Infectious Medical History: Denies: Hx Hepatitis Past Surgical History: Reports: Hx Orthopedic Surgery, Hx Tonsillectomy - had strep and flu the week before. Denies: Hx Open Heart Surgery, Hx Pacemaker - Immunizations Immunizations up to date: Yes Hx Diphtheria, Pertussis, Tetanus Vaccination: Yes Physical Exam - Vital signs Vitals: Temp Pulse Resp BP Pulse Ox 97.6 F 106 H 14 140/88 H 100 07/25/16 14:40 07/25/16 14:40 07/25/16 14:40 07/25/16 14:40 07/25/16 14:40 Course - Vital Signs Vital signs: Temp Pulse Resp BP Pulse Ox 97.6 F 106 H 14 140/88 H 100 07/25/16 14:40 07/25/16 14:40 07/25/16 14:40 07/25/16 14:40 07/25/16 14:40
[2016-07-25 15:53] LABS: ABSOLUTE EOSINOPHILS # (AUTO) 0.2 10^3/uL (0.0-0.6); ABSOLUTE LYMPHOCYTES (AUTO) 1.2 10^3/uL (0.5-4.7); ABSOLUTE MONOCYTES (AUTO) 0.9 10^3/uL (0.1-1.4); ABSOLUTE NEUT (AUTO) 5.3 10^3/uL (1.7-8.2); BASOPHILS % (AUTO) 0.2 % (0-2); HEMATOCRIT 45.6 % (37.9-51.0); HEMOGLOBIN 16.1 g/dL (13.5-17.0); HGB HCT DIFFERENCE 2.7; MEAN CORPUSCULAR HEMOGLOBIN 32.6 pg (27.0-33.4); MEAN CORPUSCULAR HGB CONC 35.3 g/dL (32.0-36.0); MEAN CORPUSCULAR VOLUME 92 fl (80-97); MONOCYTES % (AUTO) 11.9 % (3-13); RED BLOOD COUNT 4.93 10^6/uL (4.35-5.55); RED CELL DISTRIBUTION WIDTH 13.1 % (11.5-14.0); SEGMENTED NEUTROPHILS % (AUTO) 69.9 % (42-78); WHITE BLOOD COUNT 7.7 10^3/uL (4.0-10.5)
[2016-07-25 16:13] LABS: ALANINE AMINOTRANSFERASE 31 U/L (21-72); ALBUMIN 5.3 g/dL (3.5-5.0); ALKALINE PHOSPHATASE 62 U/L (38-126); ANION GAP 17 (5-19); ASPARTATE AMINO TRANSFERASE 19 U/L (17-59); BLOOD UREA NITROGEN 9 mg/dL (7-20); CALCIUM 10.4 mg/dL (8.4-10.2); CARBON DIOXIDE 27 mmol/L (22-30); CHLORIDE 99 mmol/L (98-107); CREATININE RESULT 0.83 mg/dL (0.52-1.25); GLUCOSE 88 mg/dL (75-110); POTASSIUM 4.9 mmol/L (3.6-5.0); SODIUM 143.2 mmol/L (137-145); TOTAL PROTEIN 8.6 g/dL (6.3-8.2)
[2016-07-25 16:14] LABS: ALCOHOL < 10 mg/dL (NONE DETECTED)
[2016-07-25 16:26] LABS: APPEARANCE,URINE CLEAR; BILIRUBIN,URINE NEGATIVE (NEGATIVE); GLUCOSE, URINE NEGATIVE (NEGATIVE); KETONES,URINE NEGATIVE (NEGATIVE); LEUKOCYTE ESTERASE,URINE NEGATIVE (NEGATIVE); NITRITE,URINE NEGATIVE (NEGATIVE); PROTEIN,URINE NEGATIVE (NEGATIVE); URINE SPECIFIC GRAVITY 1.002; UROBILINOGEN,URINE NEGATIVE mg/dL (<2.0)
--- NOTE | 2016-07-25 16:30 | ER Document Report ---
ED General - General Chief Complaint: General Weakness Stated Complaint: WEAKNESS Mode of Arrival: Ambulatory Information source: Patient Notes: 20-year-old male presents with complaints of headache sore throat earaches enlarged lymph nodes in the neck chest pain shortness of breath abdominal pain side pain body aches joint aches. Patient has been seen here multiple times TRAVEL OUTSIDE OF THE [place] IN LAST 30 DAYS: No - HPI Onset: Other - 1 year duration Onset/Duration: Persistent Quality of pain: Achy Severity: Mild Pain Level: 1 Associated symptoms: Other Exacerbated by: Denies Relieved by: Denies Similar symptoms previously: Yes Recently seen / treated by doctor: Yes - states pcp has tested him for everything - Related Data Allergies/Adverse Reactions: latex [Latex] Allergy (Mild, Verified 07/21/16 11:54) ITCHY RASH Sulfa (Sulfonamide Antibiotics) Allergy (Verified 07/21/16 11:54) RASH Past Medical History - Social History Smoking Status: Current Every Day Smoker Cigarette use (# per day): Yes Chew tobacco use (# tins/day): No Smoking Education Provided: No Frequency of alcohol use: Occasional Drug Abuse: Marijuana Family History: COPD, Malignancy Patient has suicidal ideation: No Patient has homicidal ideation: No - Past Medical History Cardiac Medical History: Denies: Hx Heart Attack, Hx Hypertension Pulmonary Medical History: Denies: Hx Asthma Neurological Medical History: Reports: Hx Seizures - welbutrin in july. Denies : Hx Cerebrovascular Accident Renal/ Medical History: Denies: Hx Peritoneal Dialysis GI Medical History: Denies: Hx Hepatitis, Hx Hiatal Hernia, Hx Ulcer Musculoskeltal Medical History: Reports Hx Musculoskeletal Trauma - elbow left at 6 Psychiatric Medical History: Reports: Hx Attention Deficit Hyperactivity Disorder Traumatic Medical History: Reports: Hx Fractures Infectious Medical History: Denies: Hx Hepatitis Past Surgical History: Reports: Hx Orthopedic Surgery, Hx Tonsillectomy - had strep and flu the week before. Denies: Hx Open Heart Surgery, Hx Pacemaker - Immunizations Immunizations up to date: Yes Hx Diphtheria, Pertussis, Tetanus Vaccination: Yes Review of Systems - Review of Systems Notes: ALL OTHER SYSTEMS REVIEWED AND NEGATIVE. Dictation was performed using [email or web address] voice recognition software PHYSICAL EXAMINATION: GENERAL: Well-appearing, well-nourished and in no acute distress. HEAD: Atraumatic, normocephalic. EYES: Pupils equal round and reactive to light, extraocular movements intact, sclera anicteric, conjunctiva are normal. ENT: Nares patent, oropharynx clear without exudates. Moist mucous membranes. NECK: Normal range of motion, supple without lymphadenopathy LUNGS: Breath sounds clear to auscultation bilaterally and equal. No wheezes rales or rhonchi. HEART: Regular rate and rhythm without murmurs ABDOMEN: Soft, nontender, nondistended abdomen. No guarding, no rebound. No masses appreciated. Musculoskeletal: Normal range of motion, no pitting or edema. No cyanosis. NEUROLOGICAL: Cranial nerves grossly intact. Normal speech, normal gait. Normal sensory, motor exams PSYCH: Normal mood, normal affect. SKIN: Warm, Dry, normal turgor, no rashes or lesions noted. Physical Exam - Vital signs Vitals: Temp Pulse Resp BP Pulse Ox 97.6 F 106 H 14 140/88 H 100 07/25/16 14:40 07/25/16 14:40 07/25/16 14:40 07/25/16 14:40 07/25/16 14:40 Course - Re-evaluation Re-evalutation: 07/25/16 16:30 Given the patient has been seen multiple times for similar complaints and the patient appears to have a laundry list which she admits to of medical problems with no specific diagnosis a mental health evaluation is appropriate 07/25/16 17:03 Patient was seen by mental health, they agree with my assessment. Patient is not happy with this assessment He wishes to be discharge and will be discharged since he is at no harm to himself or others After performing a Medical Screening Examination, I estimate there is LOW risk for ACUTE CORONARY SYNDROME, RESPIRATORY FAILURE, SEPSIS OR MENINGITIS, thus I consider the discharge disposition reasonable. The patient and I have discussed the diagnosis and risks, and we agree with discharging home with close follow- up. We also discussed returning to the Emergency Department immediately if new or worsening symptoms occur. We have discussed the symptoms which are most concerning (e.g., changing or worsening pain, trouble swallowing or breathing, neck stiffness, fever) that necessitate immediate return. - Vital Signs Vital signs: Temp Pulse Resp BP Pulse Ox 97.6 F 106 H 14 140/88 H 100 07/25/16 14:40 07/25/16 14:40 07/25/16 14:40 07/25/16 14:40 07/25/16 14:40 - Laboratory Result Diagrams: 07/25/16 15:32 07/25/16 15:32 Laboratory results interpreted by me: 07/25/16 15:32 Calcium 10.4 H Total Protein 8.6 H Albumin 5.3 H Salicylates < 1.0 L Acetaminophen < 10 L Discharge - Discharge Clinical Impression: Somatic complaints, multiple Condition: Stable Disposition: HOME, SELF-CARE Additional Instructions: Please follow-up with the care plan provided to you by our mental health or return immediately if there are any other concerns Referrals: NAKUL CASTELLON MD [Primary Care Provider] - Follow up tomorrow
[2016-07-25 16:41] LABS: URINE BARBITURATES SCREEN NEGATIVE; URINE METHADONE SCREEN NEGATIVE; URINE OPIATES LOW NEGATIVE; URINE PHENCYCLIDINE SCREEN NEGATIVE
[2016-07-25 17:13] VITALS: BP 152/82
--- NOTE | 2016-07-25 20:03 | PSYCHOLOGICAL NOTE ---
Psych Note - Psych Note Psych Note: Patient c/o general weakness, headache, occasional blurry vision, ear pain, throat pain, generalized rash, swollen lymph nodes, cough, intermittent productive cough, heart palpitations at times, back pain, abdominal pain, constipation/diarrhea alternating, kidney pain with urination, frequent urination,body pain worse in his knees.Intermittent fevers, and chills/fatigue. Patient suspects port graham disease. States, "My physician recommended port graham disease test". Patient states he has been seen multiple times in the ED for the same symptoms over the past few months. Patient states he is seen by [facility]. Patient states that he has been suffering from a viral infection longer than 2 months. He continued to state he has not had any success in identifying what is wrong with him; however, a year ago he had strep and it took over 2 months testing before the strep infection was identified. When asked if he finished his medication, he states "I'm not good at that." When asked for clarification he states that he "doesn't take medications" until they are complete; "I have difficulty finishing things." He stated that a few months ago he stayed in an abandoned home which resulted in bug bites all over his body. He discloses he came to [facility] and received medication; however, he did not finish that medication either. When asked why he did not finish his medications he stated that he "started to feel better but then he did not feel better later." Clinician asked for clarification and the patient repeated that he stopped taking his medication because he felt better but admitted that he started to feel sick again later. Patient was unwilling or unable to see the correlation between stopping his medication and being sick again. When asked if the patient was following up with his primary care physician the patient stated that she told him the only thing he has not been tested for was port graham disease, and he can take that test or she could refer the patient to a mental health provider. The patient stated he did not get tested for port graham disease at that time because he needed to "research it" since he didn't think he had the symptoms. He states that he now wants to be tested for port graham disease because he has looked into it now. Patient disclosed that he smokes marijuana approximately twice a week and approximately 1-2 packs cigarettes a day. When asked if his symptoms are worse before or after he smokes, he states "they're worse after smoking but sometimes it's not worse." Patient stated he went to [facility] and got sick from the water and eating raw llanos. When asked about his schooling he disclosed he tried to get into the but "couldn't because he needed so many waivers and it was just too much work." Patient then disclosed the reason he went to [facility] was joined their since he could not join the here in the [place]. He informed clinician that this was legal has he had to talk to the FBI when he returned. Patient disclosed concerned that he may at that dysentery while he was in the [facility]. Patient's brother Troy [phone] stated he is the patient's older brother. He confirmed the patient traveled to [facility] for a short time but does not know what he went for. He disclosed that when the patient was younger he remembers the patient going to the doctor a lot but remembers "a lot of it was unsubstantiated." He disclose the patient had difficulties in school; "it was socially and attention issue." Patient was alert and orientated to person, place, time and circumstance. Mood is irritable with flat affect. Patient denies suicidal and homicidal ideation. Patient denies auditory and visual hallucinations; no delusions are noted. Thought process is organized; however, thought content was obsessive and perseverative on health. conversational speech was with in normal rate tone and prosody. Eye contact was never made; patient laid in bed and looked at the ceiling during the evaluation. Intellectual abilities appear to be within normal range. Attention and concentration are good. Insight, judgment and impulse control are fair. 300.82 (F45.1) Somatic symptom disorder Impression/plan: Patient is psychiatrically clear for discharge; he does not meet the criteria for IVC per [place] GS 122 C. Patient is concerned with physical ailments and has been seen in the ED 4 times this week and a total of 11 times in the last 4 months in addition to reported visits to his primary care provider with no resolution of his concerns. With information provided by patient's brother this appears to be a re-occurring problem the patient suffers from since childhood and supports the diagnosis of somatic symptom disorder with an unknown secondary gain. Dr. Apple was consult on the care and management of this patient; attending physician is in agreement with recommendations and dispositions.
[2016-07-28 14:55] LABS: LYME DISEASE IGG AND IGM AB <0.91 ISR (0.00-0.90)
== END 2016-07-25 17:10 | disposition home or self-care (01) ==
LOC: ER 14:35
DX: F45.1 Undifferentiated somatoform disorder (principal); R53.1 Weakness; R51 Headache; M54.2 Cervicalgia; R06.02 Shortness of breath; R10.9 Unspecified abdominal pain; M79.1 Myalgia; F17.210 Nicotine dependence, cigarettes, uncomplicated; Z91.040 Latex allergy status; Z88.2 Allergy status to sulfonamides
CPT/HCPCS: 36415; 80053; 80307; 81001; 85025; 86617; 86618; 99285

== ENCOUNTER 2016-09-27 15:25 | Emergency (ER) | payer BC ==
[2016-09-27] MEDS ORDERED: LIDOCAINE 1% INJ-PF (10 MG/ML) 30 ML SDV INJ ONE (16:22)
[2016-09-27] MEDS ORDERED: AZITHROMYCIN 250 MG TABLET PO ONE (16:22)
[2016-09-27] MEDS ORDERED: CEFTRIAXONE INJ 250 MG VIAL IM ONE (16:22)
--- NOTE | 2016-09-27 16:36 | ER Document Report ---
ED GI/ - General Chief Complaint: STD Exposure Stated Complaint: GENITIAL ISSUES Mode of Arrival: Ambulatory Information source: Patient TRAVEL OUTSIDE OF THE [place] IN LAST 30 DAYS: No - HPI Patient complains to provider of: Other - Rash Notes: 09/27/16 16:31 Patient arrives with complaints of rash to his penis. Patient states that he had unprotected intercourse approximately 5 days ago, 2-3 days ago he noticed some blistering rash to his penis. He contacted his partner, she states that she has a history of herpes. He complains of some mild discomfort to the end of his penis as well. He denies any penile discharge or dysuria. No fevers. No abdominal pain. No nausea, vomiting, diarrhea. He denies any chest pain or shortness of breath. He has no other complaints at this home. - Related Data Allergies/Adverse Reactions: latex [Latex] Allergy (Mild, Verified 09/27/16 15:27) ITCHY RASH Sulfa (Sulfonamide Antibiotics) Allergy (Verified 09/27/16 15:27) RASH Past Medical History - Social History Smoking Status: Current Every Day Smoker Chew tobacco use (# tins/day): No Frequency of alcohol use: None Drug Abuse: Marijuana Family History: COPD, Malignancy Patient has suicidal ideation: No Patient has homicidal ideation: No - Past Medical History Cardiac Medical History: Denies: Hx Heart Attack, Hx Hypertension Pulmonary Medical History: Denies: Hx Asthma Neurological Medical History: Reports: Hx Seizures - welbutrin in july. Denies : Hx Cerebrovascular Accident Renal/ Medical History: Denies: Hx Peritoneal Dialysis GI Medical History: Denies: Hx Hepatitis, Hx Hiatal Hernia, Hx Ulcer Musculoskeltal Medical History: Reports Hx Musculoskeletal Trauma - elbow left at 6 Psychiatric Medical History: Reports: Hx Attention Deficit Hyperactivity Disorder Traumatic Medical History: Reports: Hx Fractures Infectious Medical History: Denies: Hx Hepatitis Past Surgical History: Reports: Hx Orthopedic Surgery, Hx Tonsillectomy - had strep and flu the week before. Denies: Hx Open Heart Surgery, Hx Pacemaker - Immunizations Immunizations up to date: Yes Hx Diphtheria, Pertussis, Tetanus Vaccination: Yes - unknown Review of Systems - Review of Systems -: Yes All other systems reviewed and negative Physical Exam - Notes Notes: GENERAL: alert, cooperative, nontoxic, no distress. HEAD: normocephalic, atraumatic EYES: conjunctiva pink without discharge, no external redness or swelling. EARS: no external swelling, no external redness NOSE: atraumatic, no external swelling MOUTH/THROAT: mucous membranes moist and pink, posterior pharynx without erythema, swelling, exudate. No trismus or drooling. NECK: soft, supple, full range of motion, no meningismus. CHEST: no distress, lungs clear and equal throughout. No wheezing, rales, rhonchi. CARDIAC: regular rate and rhythm, no murmur, normal capillary refill, normal pulses. No peripheral edema noted. ABDOMEN: Soft, nontender. BACK: full range of motion, no CVA tenderness. EXTREMITIES: full range of motion of all extremities. No redness, no swelling. NEURO: alert and oriented x 3, no focal deficits, full range of motion of all extremities. PYSCH: appropriate mood, affect. Patient is cooperative. SKIN: pink, warm, dry. : Patient has an uncircumcised penis. There is no drainage noted. The patient is noted to have several clusters of red based vesicular lesions and ulcerations to the penis consistent with herpes. Testicular exam is benign with no tenderness or mass. Remainder of the exam is unremarkable. Course - Re-evaluation Re-evalutation: 09/27/16 16:33 Patient is nontoxic. Stable vitals. The patient had unprotected intercourse approximately 5 days ago broke out with a rash about 3 days ago. His partner. Has a history of herpes. He has a rash consistent with herpes. This will be his first outbreak. GC chlamydia culture was obtained and is currently pending. The patient will be prophylactically treated with Zithromax and Rocephin. We'll call if his results are positive. The patient will be started on acyclovir for his herpes outbreak. He was instructed to always use condoms. 2 avoid sexual intercourse if he is having an outbreak. The patient is noted to have elevated blood pressure during today's emergency department visit. The patient was informed of this finding. The patient was instructed that this may be related to pre-hypertension and requires further evaluation with a primary care provider. The patient has no hypertensive symptoms at this time. The patient's emergency department workup and current diagnosis were explained to the patient and or family. Follow-up instructions were provided. Medications if prescribed were discussed. Instructions for when to return to the emergency department including specific worrisome symptoms were discussed with the patient and/or family. 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 Always use condoms. Avoid sexual intercourse if you have lesions. Follow-up with your doctor for HIV and syphilis testing. Follow-up sooner for increased pain, fever, redness, any further concerns. Your blood pressure was elevated during today's visit. Have this rechecked with your doctor. Prescriptions: Acyclovir [Acyclovir 400 mg Tablet] 400 mg PO TID #30 tablet Forms: Elevated Blood Pressure
[2016-09-27 18:43] LABS: CHLAM PCR NOT DETECTED (NOT DETECT)
== END 2016-09-27 16:45 | disposition home or self-care (01) ==
LOC: ER 15:25
DX: A60.00 Herpesviral infection of urogenital system, unspecified (principal); R21 Rash and other nonspecific skin eruption; Z20.2 Contact with and (suspected) exposure to infections with a predominantly sexual mode of transmission
CPT/HCPCS: 99283; 96372; 87491; 87591; J3490; J0696

== ENCOUNTER 2016-10-01 19:27 | Emergency (ER) | payer BC ==
--- NOTE | 2016-10-01 21:59 | ER Document Report ---
ED Extremity Problem, Lower - General Chief Complaint: Leg Pain Stated Complaint: PAIN,NUMBNESS IN LEGS, FEET Time seen by provider: 21:49 Mode of Arrival: Ambulatory Information source: Patient Notes: 20-year-old male presents to ED for complain of severe shooting pain to his legs and under his chest with burning feeling or irritation to his legs. He states this started 2 days ago he's been taken a second liter for gentle herpes the last 7 days. He states that he thinks this is an allergic reaction to his acyclovir. TRAVEL OUTSIDE OF THE [place] IN LAST 30 DAYS: No - HPI Patient complains to provider of: Pain. No: Injury - Related Data Allergies/Adverse Reactions: latex [Latex] Allergy (Mild, Verified 09/27/16 15:27) ITCHY RASH Sulfa (Sulfonamide Antibiotics) Allergy (Verified 09/27/16 15:27) RASH Past Medical History - Social History Family History: COPD, Malignancy Patient has suicidal ideation: No Patient has homicidal ideation: No - Past Medical History Cardiac Medical History: Denies: Hx Heart Attack, Hx Hypertension Pulmonary Medical History: Denies: Hx Asthma Neurological Medical History: Reports: Hx Seizures - welbutrin in july. Denies : Hx Cerebrovascular Accident Renal/ Medical History: Denies: Hx Peritoneal Dialysis GI Medical History: Denies: Hx Hepatitis, Hx Hiatal Hernia, Hx Ulcer Musculoskeltal Medical History: Reports Hx Musculoskeletal Trauma - elbow left at 7 Psychiatric Medical History: Reports: Hx Attention Deficit Hyperactivity Disorder Traumatic Medical History: Reports: Hx Fractures Infectious Medical History: Denies: Hx Hepatitis Past Surgical History: Reports: Hx Orthopedic Surgery, Hx Tonsillectomy - had strep and flu the week before. Denies: Hx Open Heart Surgery, Hx Pacemaker - Immunizations Immunizations up to date: Yes Hx Diphtheria, Pertussis, Tetanus Vaccination: Yes - unknown Physical Exam - Vital signs Vitals: Temp Pulse Resp BP Pulse Ox 98.6 F 87 18 129/80 H 98 10/01/16 19:35 10/01/16 19:35 10/01/16 19:35 10/01/16 19:35 10/01/16 19:35 Course - Vital Signs Vital signs: Temp Pulse Resp BP Pulse Ox 98.6 F 87 18 129/80 H 98 10/01/16 19:35 10/01/16 19:35 10/01/16 19:35 10/01/16 19:35 10/01/16 19:35
--- NOTE | 2016-10-01 22:03 | ER Document Report ---
ED Medical Screen (RME) - General Chief Complaint: Leg Pain Stated Complaint: PAIN,NUMBNESS IN LEGS, FEET Time seen by provider: 22:01 Mode of Arrival: Ambulatory Information source: Patient Notes: 20-year-old male presents to ED for severe shooting pain to his right quadricep and down his legs. He also has pain under his diaphragm for the last 2 days. He states he feels like his skin is burning and very irritated. States she's been on acyclovir for the last week and those symptoms started 2 days ago and he feels that this is a reaction to the acyclovir. He states he also has a low creatinine and vitamin D level according to his primary doctor. He states he also has a history of abuse of Adderall that he was prescribed for his ADD and depression. States he has a history of viruses that never got treated and multiple other problems that he is not able to explain. States his primary doctors tried to start blood work on this but nobody really looks inside to make sure what's going on with him. States he would like some blood work EKG chest x-ray and a MRI to see with hormone inside of his body. Explained to the patient that we do not do MRIs without a reason besides that he wants to see inside of his body. Consulted with Dr. Bermudez who stated that he could have the EKG chest x-ray and blood work as well as a urine and be seen by another provider to follow up with these results. I have greeted and performed a rapid initial assessment of this patient. A comprehensive ED assessment and evaluation of the patient, analysis of test results and completion of medical decision making process will be conducted by an additional ED providers. TRAVEL OUTSIDE OF THE [place] IN LAST 30 DAYS: No - Related Data Allergies/Adverse Reactions: latex [Latex] Allergy (Mild, Verified 09/27/16 15:27) ITCHY RASH Sulfa (Sulfonamide Antibiotics) Allergy (Verified 09/27/16 15:27) RASH Past Medical History - Past Medical History Cardiac Medical History: Denies: Hx Heart Attack, Hx Hypertension Pulmonary Medical History: Denies: Hx Asthma Neurological Medical History: Reports: Hx Seizures - welbutrin in july. Denies : Hx Cerebrovascular Accident Renal/ Medical History: Denies: Hx Peritoneal Dialysis GI Medical History: Denies: Hx Hepatitis, Hx Hiatal Hernia, Hx Ulcer Musculoskeltal Medical History: Reports Hx Musculoskeletal Trauma - elbow left at 7 Psychiatric Medical History: Reports: Hx Attention Deficit Hyperactivity Disorder Traumatic Medical History: Reports: Hx Fractures Infectious Medical History: Denies: Hx Hepatitis Past Surgical History: Reports: Hx Orthopedic Surgery, Hx Tonsillectomy - had strep and flu the week before. Denies: Hx Open Heart Surgery, Hx Pacemaker - Immunizations Immunizations up to date: Yes Hx Diphtheria, Pertussis, Tetanus Vaccination: Yes - unknown Physical Exam - Vital signs Vitals: Temp Pulse Resp BP Pulse Ox 98.6 F 87 18 129/80 H 98 10/01/16 19:35 10/01/16 19:35 10/01/16 19:35 10/01/16 19:35 10/01/16 19:35 Course - Vital Signs Vital signs: Temp Pulse Resp BP Pulse Ox 98.6 F 87 18 129/80 H 98 10/01/16 19:35 10/01/16 19:35 10/01/16 19:35 10/01/16 19:35 10/01/16 19:35
--- NOTE | 2016-10-01 22:23 | ER Document Report ---
ED General - General Time seen by provider: 22:20 Mode of Arrival: Ambulatory TRAVEL OUTSIDE OF THE [place] IN LAST 30 DAYS: No <ELINOR BERMAN - Last Filed: 10/02/16 05:39> <CHERI LANE - Last Filed: 10/02/16 05:48> - General Chief Complaint: Leg Pain Stated Complaint: PAIN,NUMBNESS IN LEGS, FEET Notes: Patient is a 20-year-old male that comes emergency department for several different complaints. He states he is having pain in his legs, specifically in the left leg in the hamstring area and shooting down towards his left ankle, he also reports some intermittent pains under his diaphragm, reports burning sensation of his skin, he states he was having pain shooting down his left shoulder area but this resolved. Symptoms started 2 days ago. He has been taking acyclovir for the past week for genital herpes outbreak, he was also given penicillin, azithromycin. Patient states he also stopped using Adderall after using it clinic symptoms degree 4 months ago and wonders if this is related. Patient states he is afraid that something physically is wrong with him and he wants to get back into the but is worried that he won't be able to do so. Patient denies any fevers, states the only area of pain at this time is his left hamstring area, denies injuries to this area. Only surgeries are orthopedic, he denies any other medical history. (ELINOR BERMAN) - Related Data Allergies/Adverse Reactions: latex [Latex] Allergy (Mild, Verified 09/27/16 15:27) ITCHY RASH Sulfa (Sulfonamide Antibiotics) Allergy (Verified 09/27/16 15:27) RASH Past Medical History - General Information source: Patient - Social History Smoking Status: Never Smoker Frequency of alcohol use: None Drug Abuse: None Lives with: Family Family History: COPD, Malignancy Patient has suicidal ideation: No Patient has homicidal ideation: No - Past Medical History Cardiac Medical History: Denies: Hx Heart Attack, Hx Hypertension Pulmonary Medical History: Denies: Hx Asthma Neurological Medical History: Reports: Hx Seizures - welbutrin in july. Denies : Hx Cerebrovascular Accident Renal/ Medical History: Denies: Hx Peritoneal Dialysis GI Medical History: Denies: Hx Hepatitis, Hx Hiatal Hernia, Hx Ulcer Musculoskeltal Medical History: Reports Hx Musculoskeletal Trauma - elbow left at 7 Psychiatric Medical History: Reports: Hx Attention Deficit Hyperactivity Disorder Traumatic Medical History: Reports: Hx Fractures Infectious Medical History: Denies: Hx Hepatitis Past Surgical History: Reports: Hx Orthopedic Surgery, Hx Tonsillectomy - had strep and flu the week before. Denies: Hx Open Heart Surgery, Hx Pacemaker - Immunizations Immunizations up to date: Yes Hx Diphtheria, Pertussis, Tetanus Vaccination: Yes - unknown <WEDROMARIOMONICAELINOR Last Filed: 10/02/16 05:39> Review of Systems - Review of Systems Constitutional: No symptoms reported EENT: No symptoms reported Cardiovascular: No symptoms reported Respiratory: No symptoms reported Gastrointestinal: See HPI Genitourinary: No symptoms reported Male Genitourinary: No symptoms reported Musculoskeletal: See HPI Skin: See HPI Hematologic/Lymphatic: No symptoms reported Neurological/Psychological: No symptoms reported <WEDROMARIOMONICAELINOR Filed: 10/02/16 05:39> Physical Exam - Vital signs Interpretation: Normal - General General appearance: Appears well, Alert In distress: None - Patient sitting on the bed with no signs of distress, alert and well-appearing - HEENT Head: Normocephalic, Atraumatic Eyes: Normal Conjunctiva: Normal Extraocular movements intact: Yes Eyelashes: Normal Pupils: PERRL Nasal: Normal Mouth/Lips: Normal Mucous membranes: Normal Pharynx: Normal Neck: Normal - Respiratory Respiratory status: No respiratory distress Chest status: Nontender Breath sounds: Normal. No: Decreased air movement, Wheezing Chest palpation: Normal - Cardiovascular Rhythm: Regular. No: Tachycardia Heart sounds: Normal auscultation, S1 appreciated, S2 appreciated Murmur: No - Abdominal Inspection: Normal Distension: No distension Bowel sounds: Normal Tenderness: Nontender. No: Tender, Guarding Organomegaly: No organomegaly - Back Back: Normal, Nontender - Extremities General upper extremity: Normal inspection, Nontender, Normal color, Normal ROM , Normal temperature General lower extremity: Other - Old scars of the bilateral calves of the lower extremity, no swelling, abnormal coloration, noted painful palpation, or abnormal findings. Normal distal neurovascular exam - Neurological Neuro grossly intact: Yes Cognition: Normal Orientation: AAOx4 [place] Coma Scale Eye Opening: Spontaneous Usha Coma Scale Verbal: Oriented Usha Coma Scale Motor: Obeys Commands Usha Coma Scale Total: 15 Speech: Normal Motor strength normal: LUE, RUE, LLE, RLE Sensory: Normal - Psychological Associated symptoms: Normal affect, Normal mood - Skin Skin Temperature: Warm Skin Moisture: Dry Skin Color: Normal <ELINOR BERMAN - Last Filed: 10/02/16 05:39> Course - Laboratory Result Diagrams: 10/01/16 22:34 10/01/16 22:34 <ELINOR BERMAN - Last Filed: 10/02/16 05:39> - Laboratory Result Diagrams: 10/01/16 22:34 10/01/16 22:34 <[address] L[address] - Last Filed: 10/02/16 05:48> - Re-evaluation Re-evalutation: Very well-appearing patient with unremarkable vitals, unremarkable workup, presents with nonspecific unrelated symptoms. Very unremarkable physical exam. Low suspicion of any acute abnormalities. Could have symptoms from the antivirals, patient states he has already decided to quit that acyclovir, states his symptoms are much better in relation to the outbreak. I provided patient with a copy of all his results for additional follow-up, discussed follow-up and return precautions, patient states satisfaction and agreement. (ELINOR BERMAN) - Vital Signs Vital signs: Temp Pulse Resp BP Pulse Ox 97.6 F 59 L 18 133/76 H 98 10/02/16 00:03 10/02/16 00:03 10/02/16 00:03 10/02/16 00:03 10/02/16 00:03 - Laboratory Laboratory results interpreted by me: 10/01/16 22:34 WBC 11.0 H Discharge <ELINOR BERMAN - Last Filed: 10/02/16 05:39> <CHERI LANE - Last Filed: 10/02/16 05:48> - Discharge Clinical Impression: Body aches Condition: Stable Disposition: HOME, SELF-CARE Additional Instructions: Your symptoms might be related to antiviral side effects (not allergy). This should resolve with time. Your workup and examination shows no concerning abnormalities. Follow-up with primary care. Return to the emergency department for any concerning symptoms including swelling of your lower extremity, redness, fever, or any other concerning symptoms. Referrals: ELVIN BUI, ZANDRAC [Primary Care Provider] - Follow up as needed
[2016-10-01 22:49] LABS: ABSOLUTE EOSINOPHILS # (AUTO) 0.2 10^3/uL (0.0-0.6); ABSOLUTE LYMPHOCYTES (AUTO) 2.3 10^3/uL (0.5-4.7); ABSOLUTE MONOCYTES (AUTO) 0.9 10^3/uL (0.1-1.4); ABSOLUTE NEUT (AUTO) 7.6 10^3/uL (1.7-8.2); BASOPHILS % (AUTO) 0.1 % (0-2); EOSINOPHILS % (AUTO) 2.1 % (0-6); HEMATOCRIT 41.2 % (37.9-51.0); HEMOGLOBIN 14.4 g/dL (13.5-17.0); LYMPHOCYTES % (AUTO) 20.8 % (13-45); MEAN CORPUSCULAR HEMOGLOBIN 31.8 pg (27.0-33.4); MEAN CORPUSCULAR HGB CONC 35.1 g/dL (32.0-36.0); MEAN CORPUSCULAR VOLUME 91 fl (80-97); RED BLOOD COUNT 4.54 10^6/uL (4.35-5.55); RED CELL DISTRIBUTION WIDTH 13.6 % (11.5-14.0)
[2016-10-01 23:10] LABS: ALANINE AMINOTRANSFERASE 26 U/L (21-72); ALBUMIN 4.7 g/dL (3.5-5.0); ALKALINE PHOSPHATASE 55 U/L (38-126); ANION GAP 15 (5-19); ASPARTATE AMINO TRANSFERASE 23 U/L (17-59); BILIRUBIN,DIRECT 0.3 mg/dL (0.0-0.4); BILIRUBIN,TOTAL 1.1 mg/dL (0.2-1.3); BLOOD UREA NITROGEN 11 mg/dL (7-20); CALCIUM 9.8 mg/dL (8.4-10.2); CARBON DIOXIDE 27 mmol/L (22-30); CHLORIDE 101 mmol/L (98-107); CREATINE KINASE 90 U/L (55-170); GLUCOSE 93 mg/dL (75-110); LIPASE 31.2 U/L (23-300); POTASSIUM 4.4 mmol/L (3.6-5.0); SODIUM 142.5 mmol/L (137-145); TOTAL PROTEIN 7.8 g/dL (6.3-8.2)
[2016-10-01 23:21] LABS: CREATINE KINASE MB 0.54 ng/mL (<4.55)
[2016-10-01 23:22] LABS: TROPONIN I < 0.012 ng/mL
[2016-10-02 00:08] VITALS: BP 133/76
--- NOTE | 2016-10-02 08:03 | EKG REPORT ---
SEVERITY:- NORMAL ECG - SINUS RHYTHM : Confirmed by: Jemal Modi MD 02-Oct-2016 08:02:11
== END 2016-10-02 00:04 | disposition home or self-care (01) ==
LOC: ER 19:27
DX: R52 Pain, unspecified (principal); M79.604 Pain in right leg; M79.605 Pain in left leg; R22.0 Localized swelling, mass and lump, head; M25.512 Pain in left shoulder
CPT/HCPCS: 36415; 71020; 80053; 82550; 82553; 83690; 84484; 85025; 93005; 93010; 99284

== ENCOUNTER 2016-10-12 07:40 | Emergency (ER) | payer BC ==
--- NOTE | 2016-10-12 08:12 | ER Document Report ---
ED GI/ - General Chief Complaint: Constipation Stated Complaint: ABDOMINAL PAIN Time Seen by Provider: 10/12/16 08:07 Mode of Arrival: Ambulatory Information source: Patient Notes: 20-year-old male c/o no stool result from the MOM 2 tbs he took last night. He feels bloated and only having small BM"S lately compared to what he is eating. Homeless but sleeping in his car. Mom lives here and helps him out. No vomiting. Last week had black in stools. No fever or chills. TRAVEL OUTSIDE OF THE [place] IN LAST 30 DAYS: No - Related Data Allergies/Adverse Reactions: latex [Latex] Allergy (Mild, Verified 10/12/16 07:45) ITCHY RASH Sulfa (Sulfonamide Antibiotics) Allergy (Verified 10/12/16 07:45) RASH Past Medical History - General Information source: Patient - Social History Smoking Status: Unknown if Ever Smoked Frequency of alcohol use: None Drug Abuse: Other - adderall 1 month ago Lives with: Other - in his car Family History: COPD, Malignancy Patient has suicidal ideation: No Patient has homicidal ideation: No Neurological Medical History: Reports: Hx Seizures - welbutrin in july Renal/ Medical History: Denies: Hx Peritoneal Dialysis Musculoskeltal Medical History: Reports Hx Musculoskeletal Trauma - elbow left at 7 Psychiatric Medical History: Reports: Hx Attention Deficit Hyperactivity Disorder Traumatic Medical History: Reports: Hx Fractures Infectious Medical History: Denies: Hx Hepatitis Past Surgical History: Reports: Hx Orthopedic Surgery, Hx Tonsillectomy - had strep and flu the week before. Denies: Hx Open Heart Surgery, Hx Pacemaker - Immunizations Immunizations up to date: Yes Hx Diphtheria, Pertussis, Tetanus Vaccination: Yes - unknown Review of Systems - Review of Systems Constitutional: No symptoms reported EENT: No symptoms reported Cardiovascular: No symptoms reported Respiratory: No symptoms reported Gastrointestinal: See HPI Genitourinary: No symptoms reported Male Genitourinary: No symptoms reported Musculoskeletal: No symptoms reported Skin: No symptoms reported Hematologic/Lymphatic: No symptoms reported Neurological/Psychological: No symptoms reported Physical Exam - Vital signs Vitals: Temp Pulse Resp BP Pulse Ox 97.3 F 87 16 128/69 H 98 10/12/16 07:45 10/12/16 07:45 10/12/16 07:45 10/12/16 07:45 10/12/16 07:45 Interpretation: Normal - General General appearance: Appears well, Alert In distress: None - HEENT Head: Normocephalic, Atraumatic Eyes: Normal Conjunctiva: Normal Pupils: PERRL Mouth/Lips: Normal Mucous membranes: Normal Neck: Supple. No: Lymphadenopathy - Respiratory Respiratory status: No respiratory distress Chest status: Nontender Breath sounds: Normal Chest palpation: Normal - Cardiovascular Rhythm: Regular Heart sounds: Normal auscultation Murmur: No - Abdominal Inspection: Normal Distension: No distension Bowel sounds: Normal Tenderness: Nontender. No: Tender Organomegaly: No organomegaly. No: Hepatomegaly, Splenomegaly - Back Back: Normal, Nontender. No: CVA tenderness - Extremities General upper extremity: Normal inspection, Nontender, Normal color, Normal ROM , Normal temperature General lower extremity: Normal inspection, Nontender, Normal color, Normal ROM , Normal temperature, Normal weight bearing. No: Miryam's sign - Neurological Neuro grossly intact: Yes Cognition: Normal Orientation: AAOx4 Usha Coma Scale Eye Opening: Spontaneous [place] Coma Scale Verbal: Oriented Usha Coma Scale Motor: Obeys Commands Usha Coma Scale Total: 15 Speech: Normal Motor strength normal: LUE, RUE, LLE, RLE Sensory: Normal - Psychological Associated symptoms: Normal affect, Normal mood - Skin Skin Temperature: Warm Skin Moisture: Dry Skin Color: Normal Skin irregularity: negative: Rash Course - Re-evaluation Re-evalutation: 10/12/16 09:27 Stool for occult blood is negative, no signs of obstruction on acute abdomen. 10/12/16 10:57 CBC is normal I will send the patient home - Vital Signs Vital signs: Temp Pulse Resp BP Pulse Ox 97.6 F 63 16 129/81 H 100 10/12/16 11:24 10/12/16 11:24 10/12/16 07:46 10/12/16 11:24 10/12/16 11:24 - Laboratory Result Diagrams: 10/12/16 10:24 10/12/16 09:07 Laboratory results interpreted by me: 10/12/16 10/12/16 09:07 10:10 Total Bilirubin 1.6 H Urine Ketones TRACE H Discharge - Discharge Clinical Impression: Abdominal pain Qualifiers: Abdominal location: generalized Qualified Code(s): R10.84 - Generalized abdominal pain Condition: Good Disposition: HOME, SELF-CARE Instructions: Abdominal Pain ([facility]) Additional Instructions: to er if worse copy of labwork given to you do not take any more laxatives drink 2 liters of water per day Please complete the patient satisfaction survey if you get one, and return it.. If you do not receive a survey, then you can go to the [facility] website, [email or web address] and place your comments about your very good care. Thank you very much. It was a pleasure being your medical provider today.
[2016-10-12] MEDS ORDERED: NORMAL SALINE 1000 ML 2,000 ML IV ONE (08:24)
[2016-10-12] MEDS ORDERED: NORMAL SALINE 1000 ML 1,000 ML IV ONE (08:43)
[2016-10-12 09:49] LABS: ALANINE AMINOTRANSFERASE 27 U/L (21-72); ALBUMIN 4.8 g/dL (3.5-5.0); ALKALINE PHOSPHATASE 56 U/L (38-126); ANION GAP 12 (5-19); ASPARTATE AMINO TRANSFERASE 23 U/L (17-59); BILIRUBIN,DIRECT 0.2 mg/dL (0.0-0.4); BILIRUBIN,TOTAL 1.6 mg/dL (0.2-1.3); BLOOD UREA NITROGEN 12 mg/dL (7-20); CARBON DIOXIDE 28 mmol/L (22-30); CHLORIDE 100 mmol/L (98-107); CREATININE RESULT 0.82 mg/dL (0.52-1.25); GLUCOSE 94 mg/dL (75-110); LIPASE 47.5 U/L (23-300); POTASSIUM 4.4 mmol/L (3.6-5.0); SODIUM 140.3 mmol/L (137-145); TOTAL PROTEIN 8.1 g/dL (6.3-8.2)
[2016-10-12 10:36] LABS: ABSOLUTE EOSINOPHILS # (AUTO) 0.2 10^3/uL (0.0-0.6); ABSOLUTE LYMPHOCYTES (AUTO) 1.4 10^3/uL (0.5-4.7); ABSOLUTE MONOCYTES (AUTO) 0.6 10^3/uL (0.1-1.4); ABSOLUTE NEUT (AUTO) 5.9 10^3/uL (1.7-8.2); BASOPHILS % (AUTO) 0.2 % (0-2); EOSINOPHILS % (AUTO) 2.4 % (0-6); HEMATOCRIT 39.8 % (37.9-51.0); HEMOGLOBIN 14.3 g/dL (13.5-17.0); HGB HCT DIFFERENCE 3.1; LYMPHOCYTES % (AUTO) 16.9 % (13-45); MEAN CORPUSCULAR HEMOGLOBIN 32.3 pg (27.0-33.4); MEAN CORPUSCULAR HGB CONC 35.9 g/dL (32.0-36.0); MEAN CORPUSCULAR VOLUME 90 fl (80-97); MONOCYTES % (AUTO) 7.9 % (3-13); RED BLOOD COUNT 4.43 10^6/uL (4.35-5.55); SEGMENTED NEUTROPHILS % (AUTO) 72.6 % (42-78); WHITE BLOOD COUNT 8.1 10^3/uL (4.0-10.5)
[2016-10-12 10:52] LABS: AMORPHOUS SEDIMENT,URINE TRACE /HPF; APPEARANCE,URINE CLOUDY; BILIRUBIN,URINE NEGATIVE (NEGATIVE); GLUCOSE, URINE NEGATIVE (NEGATIVE); KETONES,URINE TRACE mg/dL (NEGATIVE); LEUKOCYTE ESTERASE,URINE NEGATIVE (NEGATIVE); NITRITE,URINE NEGATIVE (NEGATIVE); PROTEIN,URINE NEGATIVE (NEGATIVE); URINE SPECIFIC GRAVITY 1.006; UROBILINOGEN,URINE NEGATIVE mg/dL (<2.0)
[2016-10-12 11:05] LABS: URINE BARBITURATES SCREEN NEGATIVE; URINE METHADONE SCREEN NEGATIVE; URINE OPIATES LOW NEGATIVE; URINE PHENCYCLIDINE SCREEN NEGATIVE
[2016-10-12 11:28] VITALS: BP 129/81
== END 2016-10-12 11:27 | disposition home or self-care (01) ==
LOC: ER 07:40
DX: K59.00 Constipation, unspecified (principal); R10.84 Generalized abdominal pain; Z91.040 Latex allergy status; Z88.2 Allergy status to sulfonamides
CPT/HCPCS: 99283; 36415; 83690; 85025; 82272; 80053; 81001; 80307; 74022; J7030; 99281

== ENCOUNTER 2016-10-12 16:32 | Emergency (ER) | payer BC ==
[2016-10-12 17:13] VITALS: BP 133/66
[2016-10-12] MEDS ORDERED: NORMAL SALINE 1000 ML 1,000 ML IV ONE (17:13)
--- NOTE | 2016-10-12 17:13 | ER Document Report ---
ED Medical Screen (RME) - General Information source: Patient TRAVEL OUTSIDE OF THE [place] IN LAST 30 DAYS: No - General Chief Complaint: Abdominal pain, fatigue, urinary frequency Stated Complaint: ABDOMINAL PAIN Time Seen by Provider: 10/12/16 17:11 Notes: Patient presents today with complaints of "some parasite or virus" causing him constipation and left ear pain. Patient describes his left ear as feeling "backed up" and that his ear feels like it is "ripping apart". Patient states he has not had a bowel movement in x2-3 days. Patient states that he thinks he contracted something from his month in the [facility] last year where he "ate raw llanos and drank water that smelled like human sewage". Patient has an odd affect. (JAH SAMANIEGO) - Related Data Allergies/Adverse Reactions: latex [Latex] Allergy (Mild, Verified 10/12/16 07:45) ITCHY RASH Sulfa (Sulfonamide Antibiotics) Allergy (Verified 10/12/16 07:45) RASH Past Medical History - Past Medical History Cardiac Medical History: Denies: Hx Heart Attack, Hx Hypertension Pulmonary Medical History: Denies: Hx Asthma Neurological Medical History: Reports: Hx Seizures - welbutrin in july. Denies : Hx Cerebrovascular Accident Renal/ Medical History: Denies: Hx Peritoneal Dialysis GI Medical History: Denies: Hx Hepatitis, Hx Hiatal Hernia, Hx Ulcer Musculoskeltal Medical History: Reports Hx Musculoskeletal Trauma - elbow left at 6 Psychiatric Medical History: Reports: Hx Attention Deficit Hyperactivity Disorder Traumatic Medical History: Reports: Hx Fractures Infectious Medical History: Denies: Hx Hepatitis Past Surgical History: Reports: Hx Orthopedic Surgery, Hx Tonsillectomy - had strep and flu the week before. Denies: Hx Open Heart Surgery, Hx Pacemaker - Immunizations Immunizations up to date: Yes Hx Diphtheria, Pertussis, Tetanus Vaccination: Yes - unknown Review of Systems - Review of Systems EENT: See HPI, Ear pain Gastrointestinal: See HPI, Abdominal pain, Constipation Physical Exam - Psychological Associated symptoms: Other - odd affect Course - Re-evaluation Re-evalutation: 10/12/16 Patient with multiple complaints for which she has been seen before. Patient is very defensive during exam and began swearing. Patient also swearing and nursing staff. Patient told that he would need to stop being verbally abusive. Patient asked if he could leave. Instructed that yes he was free to leave. Patient ambulated easily out of the emergency department. 10/12/16 19:05 I personally performed the services described in the documentation, reviewed and edited the documentation which was dictated to the scribe in my presence, and it accurately records my words and actions. (ARYAN TRIPLETT) - Vital Signs Vital signs: Temp Pulse Resp BP Pulse Ox 96 20 133/66 H 98 10/12/16 16:52 10/12/16 16:52 10/12/16 16:52 10/12/16 16:52 Doctor's Discharge - Discharge Clinical Impression: Abdominal pain Qualifiers: Abdominal location: unspecified location Qualified Code(s): R10.9 - Unspecified abdominal pain Condition: Stable Disposition: ELOPED Scribe Documentation - Scribe Written by Isaiah:: Isaiah Draper, 10/12/2016 1735 acting as scribe for :: Macho
== END 2016-10-12 17:20 | disposition left against medical advice (07) ==
LOC: ER 16:32
DX: R10.9 Unspecified abdominal pain (principal); K59.00 Constipation, unspecified; H92.02 Otalgia, left ear; Z91.040 Latex allergy status; Z88.2 Allergy status to sulfonamides
CPT/HCPCS: 99281

== ENCOUNTER 2016-10-13 00:09 | Emergency (ER) | payer BC ==
[2016-10-13 00:25] VITALS: BP 136/83
== END 2016-10-13 01:40 | disposition left against medical advice (07) ==
LOC: ER 00:09
DX: Z53.9 Procedure and treatment not carried out, unspecified reason (principal); H92.09 Otalgia, unspecified ear

== ENCOUNTER 2016-10-27 15:25 | Emergency (ER) | payer BC ==
[2016-10-27] MEDS ORDERED: IBUPROFEN 600 MG TABLET PO ONE (18:09)
--- NOTE | 2016-10-27 18:10 | ER Document Report ---
ED General - General Chief Complaint: Foreign Body in Ear Stated Complaint: FOREIGN BODY IN STOOL,EAR PAIN Time Seen by Provider: 10/27/16 17:56 Mode of Arrival: Ambulatory Information source: Patient Notes: This is a 20-year-old male who presents with multiple complaints today. His first complaint is concern that he found a insect leg (which he thinks is from a cockroach) in his stool after a bowel movement earlier today. He brought the insect part wrapped in toilet paper. He also presents with left ear pain for the past few days which was severe last night. He is concerned that perhaps an insect has crawled into his left ear. He feels that at times there may be something "crawling" in his sinuses. He also reports sinus congestion and postnasal drip. Concerned about a possible ear infection. Denies fevers or chills. Does have left sided neck discomfort and muscle tightness. Tolerating PO well and denies nausea vomiting or diarrhea. TRAVEL OUTSIDE OF THE [place] IN LAST 30 DAYS: No - Related Data Allergies/Adverse Reactions: latex [Latex] Allergy (Mild, Verified 10/12/16 07:45) ITCHY RASH Sulfa (Sulfonamide Antibiotics) Allergy (Verified 10/12/16 07:45) RASH Past Medical History - Social History Smoking Status: Unknown if Ever Smoked Family History: COPD, Malignancy - Past Medical History Cardiac Medical History: Denies: Hx Heart Attack, Hx Hypertension Pulmonary Medical History: Denies: Hx Asthma Neurological Medical History: Reports: Hx Seizures - welbutrin in july. Denies : Hx Cerebrovascular Accident Renal/ Medical History: Denies: Hx Peritoneal Dialysis GI Medical History: Denies: Hx Hepatitis, Hx Hiatal Hernia, Hx Ulcer Musculoskeltal Medical History: Reports Hx Musculoskeletal Trauma - elbow left at 7 Psychiatric Medical History: Reports: Hx Attention Deficit Hyperactivity Disorder Traumatic Medical History: Reports: Hx Fractures Infectious Medical History: Denies: Hx Hepatitis Past Surgical History: Reports: Hx Orthopedic Surgery, Hx Tonsillectomy - had strep and flu the week before. Denies: Hx Open Heart Surgery, Hx Pacemaker - Immunizations Immunizations up to date: Yes Hx Diphtheria, Pertussis, Tetanus Vaccination: Yes - unknown Review of Systems - Review of Systems Constitutional: See HPI. denies: Chills, Fever EENT: See HPI Cardiovascular: No symptoms reported. denies: Chest pain Respiratory: No symptoms reported. denies: Cough Gastrointestinal: See HPI Genitourinary: No symptoms reported Skin: No symptoms reported Hematologic/Lymphatic: No symptoms reported Neurological/Psychological: No symptoms reported Physical Exam - Notes Notes: PHYSICAL EXAMINATION: GENERAL: Well-appearing, well-nourished and in no acute distress, but worried and somewhat anxious affect. HEAD: Atraumatic, normocephalic. EYES: Pupils equal round and reactive to light, extraocular movements intact, sclera anicteric, conjunctiva are normal. ENT: nares patent, oropharynx clear without exudates. Moist mucous membranes. No facial sinus TTP. TM's pearly fink bilaterally, no FB in either EAC NECK: Normal full range of motion, supple without lymphadenopathy. Mild TTP left SCM. LUNGS: Breath sounds clear to auscultation bilaterally and equal. No wheezes rales or rhonchi. HEART: Regular rate and rhythm without murmurs ABDOMEN: Soft, nontender, normoactive bowel sounds. No guarding, no rebound. No masses appreciated. EXTREMITIES: Normal range of motion. NEUROLOGICAL: Cranial nerves grossly intact. Normal speech, normal gait. No gross focal motor or sensory deficits appreciated. PSYCH: Normal mood, anxious and somewhat worried affect. No AVH. No SI/HI SKIN: Warm, Dry, normal turgor. Scattered pustules consistent with mild acne to anterior upper chest Course - Re-evaluation Re-evalutation: 10/27/16 20:59 Long discussion with patient to reassure him that no insect is seen in his left ear. Actually his exam is normal and I see no evidence of infection or clinical evidence of infection requiring antibiotics. He is instructed to follow up with his PCP. Questions answered. Discharge - Discharge Clinical Impression: Otalgia of left ear, Sinus congestion Condition: Stable Disposition: HOME, SELF-CARE Additional Instructions: Your exam today shows no evidence of insect or foreign body in your ear, and no evidence of infection at this point. As discussed, you can take Tylenol or Ibuprofen as needed for pain, and follow up with your GI physician on 11/11 as scheduled. Return to the ER for fever >100.4 or any worsening symptoms or concerns. Prescriptions: Cyclobenzaprine HCl [Flexeril 10 mg Tablet] 10 mg PO BID PRN #12 tablet PRN Reason:
== END 2016-10-27 19:46 | disposition home or self-care (01) ==
LOC: ER 15:25
DX: H92.02 Otalgia, left ear (principal); R09.82 Postnasal drip; R09.81 Nasal congestion; Z91.040 Latex allergy status; Z88.2 Allergy status to sulfonamides
CPT/HCPCS: 99282

== ENCOUNTER 2016-10-29 02:21 | Emergency (ER) | payer BC ==
--- NOTE | 2016-10-29 04:17 | ER Document Report ---
HPI - HPI Patient complains to provider of: swollen lymph nodes Onset: Last week Onset/Duration: Persistent Pain Level: 3 Context: 20-year-old male asleep covered hi head with a blanket, wet shoes and lower pants with ants crawling on his left shoe, brought in by EMS, he was walking in the dark from [place] to the hospital, complaining of persistent swollen lymph nodes in his neck especially on his left side. He also states that he has to move his trachea in order to read easily. No trouble swallowing. He was seen yesterday in the emergency department for similar symptoms. He is homeless at this time and states that his mother tried to put him in a psychiatric hospital. He is not suicidal or depressed but becomes easily agitated. This is similar behavior for him when he is seen in the emergency department I have seen one time before. To nurses are present in the room while he is ranting loudly about distrust of medical providers. Dr. Dunn also told him that he needed to either decide to leave or let me examine him. Associated Symptoms: Other - See above Exacerbated by: Denies Relieved by: Denies Similar symptoms previously: Yes Recently seen / treated by doctor: Yes - ROS ROS below otherwise negative: Yes Systems Reviewed and Negative: Yes All other systems reviewed and negative - DERM Skin Color: Normal, [place] Past Medical History - General Information source: Patient - Social History Smoking Status: Current Every Day Smoker Chew tobacco use (# tins/day): No Frequency of alcohol use: Occasional Drug Abuse: Marijuana Lives with: Homeless Family History: COPD, Malignancy Patient has suicidal ideation: No Patient has homicidal ideation: No - Past Medical History Cardiac Medical History: Reports: Hx Hypertension - pre HTN Neurological Medical History: Reports: Hx Seizures - welbutrin in july Renal/ Medical History: Denies: Hx Peritoneal Dialysis Musculoskeltal Medical History: Reports Hx Musculoskeletal Trauma - elbow left at 7 Psychiatric Medical History: Reports: Hx Attention Deficit Hyperactivity Disorder Traumatic Medical History: Reports: Hx Fractures Past Surgical History: Reports: Hx Orthopedic Surgery, Hx Tonsillectomy. Denies : Hx Open Heart Surgery, Hx Pacemaker - Immunizations Immunizations up to date: Yes Hx Diphtheria, Pertussis, Tetanus Vaccination: Yes - unknown Vertical Provider Document - CONSTITUTIONAL Agree With Documented VS: Yes Exam Limitations: No Limitations General Appearance: No Apparent Distress - INFECTION CONTROL TRAVEL OUTSIDE OF THE [place] IN LAST 30 DAYS: No - HEENT HEENT: Normal ENT Exam - NECK Neck: Supple Notes: a few anterior bilateral lymph nodes that are less than 1 cm . - RESPIRATORY Respiratory: Breath Sounds Normal, No Respiratory Distress O2 Sat by Pulse Oximetry: 99 - CARDIOVASCULAR Cardiovascular: Regular Rate, Regular Rhythm - GI/ABDOMEN Gastrointestinal: Abdomen Soft, Abdomen Non-Tender, No Organomegaly - BACK Back: Normal Inspection - MUSCULOSKELETAL/EXTREMETIES Musculoskeletal/Extremeties: EDIE JACK - NEURO Level of Consciousness: Awake, Alert, Agitated - DERM Integumentary: Warm, Dry, No Rash Course - Re-evaluation Re-evalutation: 10/29/16 06:39 The scan shows cervical adenopathy less than 1 cm bilateral. No mass. white count mildly elevated - Vital Signs Vital signs: Temp Pulse Resp BP Pulse Ox 97.8 F 88 16 141/90 H 99 10/29/16 02:33 10/29/16 02:33 10/29/16 02:33 10/29/16 02:33 10/29/16 02:33 - Laboratory Result Diagrams: 10/29/16 05:10 10/29/16 05:10 Discharge - Discharge Clinical Impression: Cervical adenopathy, Left trapezius strain Condition: Good Disposition: HOME, SELF-CARE Instructions: Warm Packs ([facility]), Anti-Inflammatory Medication ([facility]), Acetaminophen, Cervical Lymphadenitis ([facility]), Muscle Strain ([facility]), Myalagia ( Muscle Pain) ([facility]), Family Physicians / Practices Additional Instructions: warm compress and massage to sore left trapezius muscle motrin tylenol copy of labs given to you see family practice doctor for follow up to er if worse Prescriptions: Ibuprofen [Motrin 600 mg Tablet] 600 mg PO Q8HP PRN #30 tablet PRN Reason:
[2016-10-29 05:23] LABS: ABSOLUTE EOSINOPHILS # (AUTO) 0.2 10^3/uL (0.0-0.6); ABSOLUTE LYMPHOCYTES (AUTO) 2.4 10^3/uL (0.5-4.7); ABSOLUTE MONOCYTES (AUTO) 1.1 10^3/uL (0.1-1.4); ABSOLUTE NEUT (AUTO) 9.8 10^3/uL (1.7-8.2); BASOPHILS % (AUTO) 0.3 % (0-2); EOSINOPHILS % (AUTO) 1.6 % (0-6); HEMATOCRIT 39.8 % (37.9-51.0); HGB HCT DIFFERENCE 2.2; LYMPHOCYTES % (AUTO) 17.6 % (13-45); MEAN CORPUSCULAR HEMOGLOBIN 31.6 pg (27.0-33.4); MEAN CORPUSCULAR HGB CONC 35.1 g/dL (32.0-36.0); MEAN CORPUSCULAR VOLUME 90 fl (80-97); MONOCYTES % (AUTO) 8.5 % (3-13); RED BLOOD COUNT 4.42 10^6/uL (4.35-5.55); RED CELL DISTRIBUTION WIDTH 13.4 % (11.5-14.0); WHITE BLOOD COUNT 13.6 10^3/uL (4.0-10.5)
--- NOTE | 2016-10-29 05:49 | RADIOLOGY REPORT (SQ) ---
EXAM DESCRIPTION: CT SOFT TISSUE NECK WITH COMPLETED DATE/TIME: 10/29/2016 5:25 am REASON FOR STUDY: adenopathy, tracheal pressure COMPARISON: None. TECHNIQUE: Post IV contrasted scanning from skull base through lung apices with review of bone, soft tissue and lung windows. Reconstructed coronal and sagittal MPR images reviewed. All images stored on PACS. All CT scanners at this facility use dose modulation, iterative reconstruction, and/or weight based d osing when appropriate to reduce radiation dose to as low as reasonably achievable (ALARA). [facility]: Dose Right [facility]: CareDose [facility]: Dose Right [facility]: Teradose 4D [facility]: [employer] CONTRAST TYPE AND DOSE: 75mL Isovue 370- low osmolar. RENAL FUNCTION: None required. The patient is less than 50 years old. RADIATION DOSE: 8.32 mGy. LIMITATIONS: None. FINDINGS: SKULL BASE: Intact. MAJOR SALIVARY GLANDS: No masses. No inflammatory changes. LYMPHADENOPATHY: Mildly enlarged lymph nodes along the bilateral jugular chains measuring up to 1 cm in short axis. MUCOSAL MASSES OR ASYMMETRY: No mucosal masses or asymmetry. LARYNX/CORDS: No abnormal findings. VASCULAR STRUCTURES: The major vessels are patent. LUNG APICES: Clear. BONES: Intact. THYROID: Normal size. PARANASAL SINUSES: Clear. IMPRESSION: Mildly enlarged cervical lymph nodes, nonspecific. Please correlate with clinical histo ry. Followup imaging as clinically warranted. TECHNICAL DOCUMENTATION: JOB ID: [id number] Quality ID # [id number]: Final reports with documentation of one or more dose reduction techniques (e.g., Au tomated exposure control, adjustment of the mA and/or kV according to patient size, use of iterative reconstruction technique) 2010 [employer]- All Rights Reserved
[2016-10-29 06:07] LABS: ALANINE AMINOTRANSFERASE 31 U/L (21-72); ALBUMIN 4.5 g/dL (3.5-5.0); ALKALINE PHOSPHATASE 51 U/L (38-126); ANION GAP 12 (5-19); ASPARTATE AMINO TRANSFERASE 22 U/L (17-59); BILIRUBIN,DIRECT 0.2 mg/dL (0.0-0.4); BILIRUBIN,TOTAL 1.4 mg/dL (0.2-1.3); BLOOD UREA NITROGEN 10 mg/dL (7-20); CALCIUM 9.7 mg/dL (8.4-10.2); CARBON DIOXIDE 26 mmol/L (22-30); CHLORIDE 103 mmol/L (98-107); GLUCOSE 82 mg/dL (75-110); POTASSIUM 3.5 mmol/L (3.6-5.0); SODIUM 140.6 mmol/L (137-145); TOTAL PROTEIN 7.4 g/dL (6.3-8.2)
[2016-10-29 06:25] VITALS: BP 104/58
[2016-10-29] MEDS ORDERED: IBUPROFEN 600 MG TABLET PO ONE (06:36)
== END 2016-10-29 06:55 | disposition home or self-care (01) ==
LOC: ER 02:21
DX: S29.012A Strain of muscle and tendon of back wall of thorax, initial encounter (principal); R59.0 Localized enlarged lymph nodes; F17.200 Nicotine dependence, unspecified, uncomplicated; X58.XXXA Exposure to other specified factors, initial encounter; Z59.0 Homelessness
CPT/HCPCS: 36415; 70491; 80053; 85025; 99284

== ENCOUNTER 2016-11-04 13:15 | Emergency (ER) | payer BC, OTHER ==
--- NOTE | 2016-11-04 14:46 | ER Document Report ---
HPI - HPI Pain Level: Denies Context: Patient is a 20yo male who presents to the ED c/o weight loss and possible thyroid enlargement. Pt states that he was here 2 other times in the last 2 weeks and did have a CT scan of the neck which showed his mildly enlarged cerv lymph nodes. Pt states that he is still eating and drinking with no problems. He has not had any dysphagia or dyspnea/sob. Pt is homeless and does not have a PCM. No other concerns or complaints. Pt is just not sure what/why he lost weight and if his neck has anything related with the wt loss. Denies any fever , sweats, nasal flaco/discharge, ear pain, sore throat, CP, palpitations, syncope , SOB, dyspnea, Abd pain, n/v/d/c, dysuria, or rash. - ROS Notes: REVIEW OF SYSTEMS: CONSTITUTIONAL : Denies fever, chills, or sweats. + unintended wt loss EENT: Denies eye, ear, throat, or mouth pain or symptoms. Denies nasal or sinus congestion or discharge. Denies throat, tongue, or mouth swelling or difficulty swallowing. CARDIOVASCULAR: Denies chest pain. Denies palpitations or racing or irregular heart beat. Denies ankle edema. RESPIRATORY: Denies cough, cold, or chest congestion. Denies shortness of breath, difficulty breathing, or wheezing. GASTROINTESTINAL: Denies abdominal pain or distention. Denies nausea, vomiting , or diarrhea. Denies blood in vomitus, stools, or per rectum. Denies black, tarry stools. Denies constipation. GENITOURINARY: Denies difficulty urinating, painful urination, burning, frequency, blood in urine, or discharge. MUSCULOSKELETAL: Denies back or neck pain or stiffness. Denies joint pain or swelling. SKIN: Denies rash, lesions or sores. HEMATOLOGIC : Denies easy bruising or bleeding. LYMPHATIC: see hpi NEUROLOGICAL: Denies confusion or altered mental status. Denies passing out or loss of consciousness. Denies dizziness or lightheadedness. Denies headache. Denies weakness or paralysis or loss of use of either side. Denies problems with gait or speech. Denies sensory loss, numbness, or tingling. Denies seizures. PSYCHIATRIC: Denies anxiety or stress. Denies depression, suicidal ideation, or homicidal ideation. ALL OTHER SYSTEMS REVIEWED AND NEGATIVE. Dictation was performed using Dragon voice recognition software - DERM Skin Color: Normal Past Medical History - Social History Smoking Status: Current Some Day Smoker Family History: COPD, Malignancy Patient has suicidal ideation: No Patient has homicidal ideation: No - Past Medical History Cardiac Medical History: Reports: Hx Hypertension - pre HTN Denies: Hx Heart Attack Pulmonary Medical History: Denies: Hx Asthma Neurological Medical History: Reports: Hx Seizures - welbutrin in july. Denies : Hx Cerebrovascular Accident Renal/ Medical History: Denies: Hx Peritoneal Dialysis GI Medical History: Denies: Hx Hepatitis, Hx Hiatal Hernia, Hx Ulcer Musculoskeltal Medical History: Reports Hx Musculoskeletal Trauma - elbow left at 7 Psychiatric Medical History: Reports: Hx Attention Deficit Hyperactivity Disorder Traumatic Medical History: Reports: Hx Fractures Infectious Medical History: Denies: Hx Hepatitis Past Surgical History: Reports: Hx Orthopedic Surgery, Hx Tonsillectomy. Denies : Hx Open Heart Surgery, Hx Pacemaker - Immunizations Immunizations up to date: Yes Hx Diphtheria, Pertussis, Tetanus Vaccination: Yes - unknown Vertical Provider Document - CONSTITUTIONAL Notes: PHYSICAL EXAMINATION: GENERAL: Well-appearing, well-nourished and in no acute distress. HEAD: Atraumatic, normocephalic. EYES: Pupils equal round and reactive to light, extraocular movements intact, sclera anicteric, conjunctiva are normal. ENT: EAC clear b/l. TM's intact b/l without erythema, fluid, or perforation. Nares patent and without discharge. oropharynx clear without exudates. absent tonsils s/p tonsilectomy. Moist mucous membranes. No sinus tenderness. Poor dentition with dental caries. No mouth abscess or purulent discharge. No ludwigs. NECK: Normal range of motion, supple. No thyroid nodules palpated. Thyroid non- tender and not enlarged. + cerv lymphadenopathy, mobile, non-tender, soft. LUNGS: Breath sounds clear to auscultation bilaterally and equal. No wheezes rales or rhonchi. HEART: Regular rate and rhythm without murmurs, rubs, gallops. ABDOMEN: Soft, nontender, nondistended abdomen. No guarding, no rebound. No masses appreciated. Normal bowel sounds present. No CVA tenderness bilaterally. + small palpable, mobile, inguinal adenopathy b/l. Musculoskeletal: FROM to passive/active. Strength 5+/5. Extremities: No cyanosis, clubbing, or edema b/l. Peripheral pulses 2+. Capillary refill less than 3 seconds. No axillary adenopathy or supraclavicular. NEUROLOGICAL: Cranial nerves grossly intact. Normal speech, normal gait. Normal sensory, motor exams PSYCH: Normal mood, normal affect. SKIN: Warm, Dry, normal turgor, no rashes or lesions noted. - INFECTION CONTROL TRAVEL OUTSIDE OF THE [place] IN LAST 30 DAYS: No - RESPIRATORY O2 Sat by Pulse Oximetry: 99 Course - Re-evaluation Re-evalutation: Patient is a 20yo male who presents to the ED with unexplained wt loss. CT of the neck 6 days ago did not show any thyroid abnormality, but did not mildly enlarged (approx 1cm) cervical lymphadenopathy. Pt is homeless and does not follow regularly with his PCM. On PE I was able to palpate inguinal adenopathy ( small, rubbery, mobile, non-tender) but could just have been due to his low weight. Reviewed with Dr. Mina who agreed with CBC, CMP, and thyroid panel with consult with Dr. Joyce (oncologist). CBC, CMP, and TSH/T3/T4 unremarkable at this time. Thyroid antibodies pending. Reviewed with Dr. Joyce who suggested consult with ENT and then her office if he was unable to get an appointment. She did not think he would be able to get a biopsy due to the small size of the lymphadenopathy. Reviewing with the patient, he told me that he does have a consult with ENT this month already scheduled. Dr. Mina agreed that we could discharge him based on stable vital signs, neg lab work, and otherwise unremarkable PE with close f/u with his PCM/ENT and/or Oncology. Reviewed case thoroughly with the patient who is in agreement to f/u with PCM and keep ENT consult. Information was given for the oncology clinic and ENT. Advised to return to the ED with any development of fever/pain, sob, cp, palp, syncope, abd pain, n/v/d, dysuria, hematuria, trouble swallowing/breathing, or other worsening symptoms. Pt in agreement. 11/04/16 18:35 - Vital Signs Vital signs: Temp Pulse Resp BP Pulse Ox 97.9 F 83 16 147/78 H 99 11/04/16 13:25 11/04/16 13:53 11/04/16 13:53 11/04/16 13:53 11/04/16 13:53 - Laboratory Result Diagrams: 11/04/16 14:56 11/04/16 14:56 Discharge - Discharge Clinical Impression: Weight loss, Lymphadenopathy Condition: Stable Disposition: HOME, SELF-CARE Additional Instructions: Maintain adequate food/liquid intake Tylenol/ibuprofen or other over the counter medications as needed Establish and/or f/u with PCM --very important. Keep consult with ENT as scheduled. May contact Dr. Joy Joyce's office in Oncology for a consult if you are unable to get into ENT. Return to the ED with any development of fever, worsening symptoms of pain/ swelling, Chest pains, shortness of breath, or trouble breathing. Please contact the following office for an appointment tomorrow or returm immediately if there are any other concerns [facility] Address: [address] [place] [id number] Referrals: [facility] [Provider Group] - Follow up as needed JOY JOYCE MD [ACTIVE STAFF] - Follow up as needed [facility] [Provider [facility]] - Follow up in 1 week
[2016-11-04 15:07] LABS: ABSOLUTE EOSINOPHILS # (AUTO) 0.3 10^3/uL (0.0-0.6); ABSOLUTE LYMPHOCYTES (AUTO) 1.4 10^3/uL (0.5-4.7); ABSOLUTE MONOCYTES (AUTO) 0.8 10^3/uL (0.1-1.4); ABSOLUTE NEUT (AUTO) 5.8 10^3/uL (1.7-8.2); BASOPHILS % (AUTO) 0.2 % (0-2); EOSINOPHILS % (AUTO) 3.2 % (0-6); HEMATOCRIT 45.1 % (37.9-51.0); HEMOGLOBIN 15.5 g/dL (13.5-17.0); HGB HCT DIFFERENCE 1.4; LYMPHOCYTES % (AUTO) 17.5 % (13-45); MEAN CORPUSCULAR HEMOGLOBIN 31.3 pg (27.0-33.4); MEAN CORPUSCULAR HGB CONC 34.3 g/dL (32.0-36.0); MEAN CORPUSCULAR VOLUME 91 fl (80-97); MONOCYTES % (AUTO) 9.3 % (3-13); RED BLOOD COUNT 4.95 10^6/uL (4.35-5.55); RED CELL DISTRIBUTION WIDTH 13.5 % (11.5-14.0); SEGMENTED NEUTROPHILS % (AUTO) 69.8 % (42-78); WHITE BLOOD COUNT 8.3 10^3/uL (4.0-10.5)
[2016-11-04 15:34] LABS: ALANINE AMINOTRANSFERASE 21 U/L (21-72); ALBUMIN 4.9 g/dL (3.5-5.0); ALKALINE PHOSPHATASE 51 U/L (38-126); ANION GAP 12 (5-19); ASPARTATE AMINO TRANSFERASE 21 U/L (17-59); BILIRUBIN,DIRECT 0.3 mg/dL (0.0-0.4); BILIRUBIN,TOTAL 0.8 mg/dL (0.2-1.3); BLOOD UREA NITROGEN 12 mg/dL (7-20); CALCIUM 10.1 mg/dL (8.4-10.2); CARBON DIOXIDE 29 mmol/L (22-30); CHLORIDE 101 mmol/L (98-107); CREATININE RESULT 0.83 mg/dL (0.52-1.25); GLUCOSE 86 mg/dL (75-110); POTASSIUM 4.1 mmol/L (3.6-5.0); SODIUM 142.3 mmol/L (137-145); TOTAL PROTEIN 8.3 g/dL (6.3-8.2)
[2016-11-04 15:48] LABS: FREE T3 4.36 pg/mL (2.77-5.27)
[2016-11-04 16:02] LABS: THYROID STIMULATING HORMONE 1.19 uIU/mL (0.47-4.68)
[2016-11-04 17:39] VITALS: BP 124/77
[2016-11-06 05:41] LABS: THYROID PEROXIDASE (TPO) AB 9 IU/mL (0-34)
[2016-11-07 12:40] LABS: THYROGLOBULIN AB <1.0 IU/mL (0.0-0.9)
== END 2016-11-04 17:35 | disposition home or self-care (01) ==
LOC: ER 13:15
DX: R63.4 Abnormal weight loss (principal); Z68.1 Body mass index [BMI] 19.9 or less, adult; R59.1 Generalized enlarged lymph nodes; K02.9 Dental caries, unspecified; Z59.0 Homelessness; F17.200 Nicotine dependence, unspecified, uncomplicated; Z80.9 Family history of malignant neoplasm, unspecified
CPT/HCPCS: 36415; 80053; 84439; 84443; 84481; 85025; 86376; 99283

== ENCOUNTER 2016-11-07 12:45 | Emergency (ER) | payer BC ==
--- NOTE | 2016-11-07 13:43 | ER Document Report ---
ED General - General Stated Complaint: NOT FEELING WELL Time Seen by Provider: 11/07/16 13:21 Notes: Patient is here for multiple complaints that seem to be unrelated. He says he feels his thyroid gland is swollen. Says he has lost 25 pounds in the last 6 days. Complaining of his abdomen being distended. Also complaining of back pain and chest pain. Was seen here 3 days ago and then also on October 29. Patient has about 15 visits in the past 6 months, all of them for multiple reasons, none of them psychiatric. Today, patient is hyper and likely manic. Patient says he has a history of depression and ADHD, but not currently being treated for any mental condition. Patient denies vomiting. Has abdominal pain when he has bowel movements. Says he has a hard time breathing at times. Lymph nodes have been enlarged. Had a colonoscopy for internal hemorrhoids about a month ago. Patient denies taking any illicit drugs. Drinks an occasional beer. Smokes cigarettes. TRAVEL OUTSIDE OF THE [place] IN LAST 30 DAYS: No - Related Data Allergies/Adverse Reactions: latex [Latex] Allergy (Mild, Verified 11/07/16 15:08) ITCHY RASH Sulfa (Sulfonamide Antibiotics) Allergy (Verified 11/07/16 15:08) RASH Past Medical History - Social History Smoking Status: Current Every Day Smoker Cigarette use (# per day): Yes Frequency of alcohol use: Occasional Drug Abuse: None Occupation: Currently unemployed Family History: Reviewed & Not Pertinent, COPD, Malignancy - Past Medical History Cardiac Medical History: Reports: Hx Hypertension - pre HTN Denies: Hx Heart Attack Pulmonary Medical History: Denies: Hx Asthma Neurological Medical History: Reports: Hx Seizures - welbutrin in july. Denies : Hx Cerebrovascular Accident GI Medical History: Denies: Hx Hepatitis, Hx Hiatal Hernia, Hx Ulcer Musculoskeltal Medical History: Reports Hx Musculoskeletal Trauma - elbow left at 7 Psychiatric Medical History: Reports: Hx Attention Deficit Hyperactivity Disorder, Hx Depression Traumatic Medical History: Reports: Hx Fractures Infectious Medical History: Denies: Hx Hepatitis Past Surgical History: Reports: Hx Orthopedic Surgery, Hx Tonsillectomy - Immunizations Immunizations up to date: Yes Hx Diphtheria, Pertussis, Tetanus Vaccination: Yes - unknown Review of Systems - Review of Systems Notes: REVIEW OF SYSTEMS: CONSTITUTIONAL : Denies fever, but says he is having chills. Complains of physiologically and possible weight loss. EENT: Denies eye, ear, nose or mouth or throat pain or other symptoms. Complains of his thyroid hurting. CARDIOVASCULAR: Denies chest pain. RESPIRATORY: He feels short of breath. GASTROINTESTINAL: Denies abdominal pain or nausea, vomiting, or diarrhea. Abdominal pain with bowel movements. Recent colonoscopy. GENITOURINARY: Denies difficulty or painful urinating, urinary frequency, blood in urine. MUSCULOSKELETAL: As back pain. Denies neck pain. Denies joint pain or swelling. SKIN: Denies rash or skin lesions. Patient does have some redness around his neck extending down onto his chest which he says that he has had for months and does not know what is causing it. NEUROLOGICAL: Denies LOC or altered mental status. Denies headache. Denies sensory loss or motor deficits. ALL OTHER SYSTEMS REVIEWED AND NEGATIVE. Physical Exam - Vital signs Vitals: Temp Pulse Resp BP Pulse Ox 97.8 F 94 18 146/90 H 100 11/07/16 13:35 11/07/16 13:35 11/07/16 13:35 11/07/16 13:35 11/07/16 13:35 - Notes Notes: PHYSICAL EXAMINATION: GENERAL: Well-appearing, in no acute distress. He is hyper, ?Manic. HEAD: Atraumatic, normocephalic. EYES: Pupils equal round and reactive to light, extraocular movements intact. ENT: oropharynx clear without exudates. Moist mucous membranes. NECK: Normal range of motion, supple. Skin around the patient's neck has a reddish hue with some splotchy redness down the upper anterior chest. LUNGS: Breath sounds clear and equal bilaterally. HEART: Regular rate and rhythm without murmurs. Heart rate is about 120. ABDOMEN: Soft, nontender. No guarding or rebound. BACK: No tenderness throughout entire back. EXTREMITIES: Normal range of motion without pain. NEUROLOGICAL: Normal speech, normal gait. Normal sensory, motor, and reflex exams. Awake, alert, and oriented x3. Cranial nerves normal. PSYCH: Normal mood, normal affect. Hyperactive, and ?manic. Loud, angry, mildly agitated. SKIN: Warm, dry, no rashes, but red color to skin around the patient's neck extending down onto the anterior upper chest.. Course - Re-evaluation Re-evalutation: 11/07/16 17:41 Patient was evaluated by mental health who feels he is stable to be discharged. No psychotic behavior of danger to himself or others. Mental health provided patient with follow-up with information. - Vital Signs Vital signs: Temp Pulse Resp BP Pulse Ox 97.8 F 80 20 130/82 H 97 11/07/16 17:44 11/07/16 17:44 11/07/16 17:44 11/07/16 17:44 11/07/16 17:44 - Laboratory Result Diagrams: 11/07/16 13:30 11/07/16 13:30 Laboratory results interpreted by me: 11/07/16 11/07/16 13:30 13:30 Total Protein 8.4 H Ur Leukocyte Esterase TRACE H Salicylates < 1.0 L Acetaminophen < 10 L UDS positive for marijuana. All others negative. Other lab work essentially normal. - EKG Interpretation by [place] EKG shows normal: Sinus rhythm Rate: Tachycardia - At 122 by EKG Rhythm: NSR Discharge - Discharge Clinical Impression: Somatic delusion disorder Condition: Good Disposition: HOME, SELF-CARE
[2016-11-07 13:51] LABS: ABSOLUTE EOSINOPHILS # (AUTO) 0.1 10^3/uL (0.0-0.6); ABSOLUTE LYMPHOCYTES (AUTO) 1.6 10^3/uL (0.5-4.7); ABSOLUTE MONOCYTES (AUTO) 0.6 10^3/uL (0.1-1.4); BASOPHILS % (AUTO) 0.1 % (0-2); EOSINOPHILS % (AUTO) 1.9 % (0-6); HEMATOCRIT 44.9 % (37.9-51.0); HEMOGLOBIN 15.8 g/dL (13.5-17.0); HGB HCT DIFFERENCE 2.5; MEAN CORPUSCULAR HEMOGLOBIN 32.1 pg (27.0-33.4); MEAN CORPUSCULAR HGB CONC 35.1 g/dL (32.0-36.0); MEAN CORPUSCULAR VOLUME 91 fl (80-97); MONOCYTES % (AUTO) 8.5 % (3-13); RED BLOOD COUNT 4.91 10^6/uL (4.35-5.55); RED CELL DISTRIBUTION WIDTH 13.7 % (11.5-14.0); SEGMENTED NEUTROPHILS % (AUTO) 67.5 % (42-78); WHITE BLOOD COUNT 7.5 10^3/uL (4.0-10.5)
[2016-11-07 14:16] LABS: ALANINE AMINOTRANSFERASE 31 U/L (21-72); ALBUMIN 4.9 g/dL (3.5-5.0); ALKALINE PHOSPHATASE 58 U/L (38-126); ANION GAP 16 (5-19); ASPARTATE AMINO TRANSFERASE 19 U/L (17-59); BILIRUBIN,DIRECT 0.2 mg/dL (0.0-0.4); BILIRUBIN,TOTAL 0.7 mg/dL (0.2-1.3); BLOOD UREA NITROGEN 14 mg/dL (7-20); CALCIUM 9.7 mg/dL (8.4-10.2); CARBON DIOXIDE 23 mmol/L (22-30); CHLORIDE 104 mmol/L (98-107); CREATININE RESULT 0.71 mg/dL (0.52-1.25); GLUCOSE 106 mg/dL (75-110); POTASSIUM 4.7 mmol/L (3.6-5.0); SODIUM 142.9 mmol/L (137-145); TOTAL PROTEIN 8.4 g/dL (6.3-8.2)
[2016-11-07 14:17] LABS: ALCOHOL < 10 mg/dL (NONE DETECTED)
[2016-11-07 14:28] LABS: APPEARANCE,URINE CLOUDY; BILIRUBIN,URINE NEGATIVE (NEGATIVE); GLUCOSE, URINE NEGATIVE (NEGATIVE); KETONES,URINE NEGATIVE (NEGATIVE); LEUKOCYTE ESTERASE,URINE TRACE (NEGATIVE); NITRITE,URINE NEGATIVE (NEGATIVE); PROTEIN,URINE NEGATIVE (NEGATIVE); URINE SPECIFIC GRAVITY 1.017; UROBILINOGEN,URINE NEGATIVE mg/dL (<2.0)
[2016-11-07 14:38] LABS: URINE BARBITURATES SCREEN NEGATIVE; URINE METHADONE SCREEN NEGATIVE; URINE OPIATES LOW NEGATIVE; URINE PHENCYCLIDINE SCREEN NEGATIVE
[2016-11-07 14:44] LABS: THYROID STIMULATING HORMONE 0.89 uIU/mL (0.47-4.68)
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
[2016-11-07 17:45] VITALS: BP 130/82
--- NOTE | 2016-11-09 09:24 | EKG REPORT ---
SEVERITY:- OTHERWISE NORMAL ECG - SINUS TACHYCARDIA : Confirmed by: Delores Stewart 09-Nov-2016 09:23:55
== END 2016-11-07 17:44 | disposition home or self-care (01) ==
LOC: ER 12:45
DX: F45.9 Somatoform disorder, unspecified (principal); R00.0 Tachycardia, unspecified; R07.9 Chest pain, unspecified; R10.9 Unspecified abdominal pain; R06.02 Shortness of breath; M54.9 Dorsalgia, unspecified; L53.9 Erythematous condition, unspecified; F17.210 Nicotine dependence, cigarettes, uncomplicated; Z91.040 Latex allergy status; Z88.2 Allergy status to sulfonamides
CPT/HCPCS: 36415; 80053; 80307; 81001; 84439; 84443; 85025; 93005; 93010; 99284

== ENCOUNTER 2018-07-14 22:09 | Emergency (ER) | payer BC ==
--- NOTE | 2018-07-14 23:42 | ER Document Report ---
ED General - General Chief Complaint: Head Injury without LOC Stated Complaint: HEAD INJURY Time Seen by Provider: 07/14/18 23:25 Primary Care Provider: MARIA VICTORIA PRASAD MD [NO LOCAL MD] - Follow up in 1 week Notes: Patient is a 22-year-old male who presents with complaint of being hit head while boxing. He was wearing padded headgear. He says he is concerned because when he got hit over the left ear his ear started ringing and he felt dazed. He then had a headache. Headache is now improved. No vomiting. No loss of conscious. He is on any blood thinning medications. Says he is concerned because approximately a year ago he used to use a lot of drugs. He has been clean now for a while. He feels as if his symptoms from getting hit more severe because of his history of using all these drugs in the past and requests to see a neurologist. He denies any fevers. No infections. No neck pain. He denies any other complaints at this time. No weakness or numbness into the extremities. TRAVEL OUTSIDE OF THE [place] IN LAST 30 DAYS: No - Related Data Allergies/Adverse Reactions: latex [Latex] Allergy (Mild, Verified 11/07/16 15:08) ITCHY RASH Sulfa (Sulfonamide Antibiotics) Allergy (Verified 11/07/16 15:08) RASH Past Medical History - Social History Smoking Status: Former Smoker Frequency of alcohol use: None Drug Abuse: None Family History: Reviewed & Not Pertinent, COPD, Malignancy - Past Medical History Cardiac Medical History: Reports: Hx Hypertension - pre HTN Denies: Hx Heart Attack Pulmonary Medical History: Denies: Hx Asthma Neurological Medical History: Reports: Hx Seizures - welbutrin in july. Denies: Hx Cerebrovascular Accident Renal/ Medical History: Denies: Hx Peritoneal Dialysis GI Medical History: Denies: Hx Hepatitis, Hx Hiatal Hernia, Hx Ulcer Musculoskeletal Medical History: Reports Hx Musculoskeletal Trauma - elbow left at 7 Psychiatric Medical History: Reports: Hx Attention Deficit Hyperactivity Disorder, Hx Depression Traumatic Medical History: Reports: Hx Fractures Infectious Medical History: Denies: Hx Hepatitis Past Surgical History: Reports: Hx Orthopedic Surgery, Hx Tonsillectomy. Denies: Hx Open Heart Surgery, Hx Pacemaker - Immunizations Immunizations up to date: Yes Hx Diphtheria, Pertussis, Tetanus Vaccination: Yes - unknown Review of Systems - Review of Systems Notes: My Normal Review Basic REVIEW OF SYSTEMS: CONSTITUTIONAL : Denies fever, chills, or sweats. Denies recent illness. EENT: Denies eye, ear, throat, or mouth pain or symptoms. Denies nasal or sinus congestion. RESPIRATORY: Denies cough, cold, or chest congestion. Denies shortness of breath, difficulty breathing, or wheezing. GASTROINTESTINAL: Denies abdominal pain. Denies nausea, vomiting, or diarrhea. GENITOURINARY: Denies difficulty urinating, painful urination, burning, frequency, or blood in urine. MUSCULOSKELETAL: Denies neck or back pain or joint pain or swelling. SKIN: Denies rash or skin lesions. NEUROLOGICAL: Denies altered mental status or loss of consciousness. Has a headache. Denies weakness or paralysis or loss of use of either side. Denies problems with gait or speech. Denies sensory or motor loss. ALL OTHER SYSTEMS REVIEWED AND NEGATIVE. Physical Exam - Vital signs Vitals: Temp Pulse Resp BP Pulse Ox 98.4 F 85 16 117/68 100 07/14/18 22:44 07/14/18 22:44 07/14/18 22:44 07/14/18 22:44 07/14/18 22:44 - Notes Notes: General Appearance: Well nourished, alert, cooperative, no acute distress, no obvious discomfort. Well-appearing. Vitals: reviewed, See vital signs table. Head: no swelling or tenderness to the head Eyes: PERRL, EOMI, Conjuctiva clear Mouth: No decreasd moisture Ears: Normal-appearing tympanic membranes bilaterally without signs of trauma to the TMs. Neck: Supple, no neck tenderness, No thyromegaly Lungs: No wheezing, No rales, No rhonci, No accessory muscle use, good air exchange bilaterally. Heart: Normal rate, Regular rythm, No murmur, no rub Extremities: strength 5/5 in all extremities Skin: warm, dry, appropriate color, no rash Neuro: speech clear, oriented x 3, normal affect, responds appropriately to questions. Renal nerves II through XII are intact. Distal sensation intact. Patient has good strength in all 4 extremities. Patient is able to stand and balance without difficulty. Normal Romberg testing. Course - Re-evaluation Re-evalutation: 07/14/18 23:49 She has signs of concussion. I do not feel he needs a CT scan of his head as he is not on blood thinning medications, does not have a bleeding disorder, did not have loss conscious, has not been vomiting, and his headache is already almost completely resolved. Talk to patient length about concussion and need to rest over the next 48 hours. I encouraged him to follow-up with a neurologist for reevaluation. I informed her not to do any boxing or activities where he could be hit in the head for at least 2 weeks and until cleared by neurologist. Patient agrees with plan and will be discharged home. Dictation of this chart was performed using voice recognition software; therefore, there may be some unintended grammatical errors. - Vital Signs Vital signs: Temp Pulse Resp BP Pulse Ox 98.4 F 85 16 117/68 100 07/14/18 22:44 07/14/18 22:44 07/14/18 22:44 07/14/18 22:44 07/14/18 22:44 Discharge - Discharge Clinical Impression: Concussion Qualifiers: Encounter type: initial encounter Loss of consciousness presence/duration: without LOC Qualified Code(s): S06.0X0A - Concussion without loss of consciousness, initial encounter Condition: Good Disposition: HOME, SELF-CARE Additional Instructions: Concussion You have suffered a concussion -- a temporary loss of certain brain functions due to a mild brain injury. The recovery is usually rapid and complete. The temporary problems occurring with a concussion can include loss of consciousness, dizziness, nausea, vomiting, and confusion. Repeat concussions can cause brain damage. In the future, avoid activities that will cause a blow to your head. Wear a helmet for sports such as snowboarding, biking, or skating. It's important that someone be with you for the first 24 hours. During this time, do not exercise or drive a vehicle. Do not take any pain medication stronger than acetaminophen unless prescribed by the physician. Any significant changes should be reported immediately to the physician. Signs of a problem may include: (1) Mental confusion (2) Incoordination or staggering (3) Repeated or forceful vomiting (4) Clear or bloody drainage from ear, mouth, or nose (5) Severe headache, not relieved by acetaminophen or prescribed pain medication (6) Failure to improve in 24 hours Please follow-up with the neurologist, Dr. Prasad, for reevaluation within 2 weeks. Do not return to boxing or any activities where you can be hit in the head until cleared by the neurologist. Take Zofran for nausea as needed not to exceed one tablet every 4 hours. Referrals: MARIA VICTORIA PRASAD MD [NO LOCAL MD] - Follow up in 1 week
[2018-07-14] MEDS ORDERED: ONDANSETRON ODT 4 MG TAB (6 TAB/ER DISP) PO PRN (23:45)
[2018-07-15 00:09] VITALS: BP 111/56
== END 2018-07-15 00:09 | disposition home or self-care (01) ==
LOC: ER 22:09
DX: S06.0X0A Concussion without loss of consciousness, initial encounter (principal); W50.0XXA Accidental hit or strike by another person, initial encounter; Y93.71 Activity, boxing; Z91.040 Latex allergy status; Z88.2 Allergy status to sulfonamides; Z87.891 Personal history of nicotine dependence
CPT/HCPCS: 99283

== ENCOUNTER 2020-04-21 15:41 | Emergency (ER) | payer BC ==
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
[2020-04-21 17:51] LABS: APPEARANCE,URINE CLEAR; BILIRUBIN,URINE NEGATIVE (NEGATIVE); COLOR,URINE YELLOW; GLUCOSE, URINE NEGATIVE (NEGATIVE); KETONES,URINE NEGATIVE (NEGATIVE); LEUKOCYTE ESTERASE,URINE NEGATIVE (NEGATIVE); NITRITE,URINE NEGATIVE (NEGATIVE); PROTEIN,URINE NEGATIVE (NEGATIVE); URINE SPECIFIC GRAVITY 1.013; UROBILINOGEN,URINE NEGATIVE mg/dL (<2.0)
[2020-04-21 18:07] LABS: ALBUMIN 5.3 g/dL (3.5-5.0); ALKALINE PHOSPHATASE 71 U/L (38-126); ANION GAP 14 (5-19); ASPARTATE AMINO TRANSFERASE 32 U/L (17-59); BILIRUBIN,TOTAL 1.2 mg/dL (0.2-1.3); BLOOD UREA NITROGEN 17 mg/dL (7-20); CALCIUM 10.1 mg/dL (8.4-10.2); CARBON DIOXIDE 27 mmol/L (22-30); CHLORIDE 98 mmol/L (98-107); GLUCOSE 92 mg/dL (75-110); POTASSIUM 4.8 mmol/L (3.6-5.0); TOTAL PROTEIN 9.2 g/dL (6.3-8.2)
--- NOTE | 2020-04-21 18:28 | RADIOLOGY REPORT (SQ) ---
EXAM DESCRIPTION: CT ABD/PELVIS WITH IV ONLY IMAGES COMPLETED DATE/TIME: 04/21/2020 6:16 pm REASON FOR STUDY: trauma COMPARISON: None. TECHNIQUE: CT scan of the abdomen and pelvis performed using helical scanning technique with dynamic intravenous contrast injection. No oral contrast. Images reviewed with lung, soft tissue, and bone windows. Reconstructed coronal and sagittal MPR images reviewed. Delayed images for evaluation of the urinary system also acquired. All images stored on PACS. All CT scanners at this facility use dose modulation, iterative reconstruction, and/or weight based d osing when appropriate to reduce radiation dose to as low as reasonably achievable (ALARA). [facility]: Dose Right [facility]: CareDose [facility]: Dose Right [facility]: Teradose 4D [facility]: [employer] CONTRAST TYPE AND DOSE: contrast/concentration: Isovue 350.00 mmol/ml; Total Contrast Delivered: 67. 0 ml; Total Saline Delivered: 63.9 ml RENAL FUNCTION: None required. The patient is less than 50 years old. RADIATION DOSE: CT Rad equipment meets quality standard of care and radiation dose reduction techniq ues were employed. CTDIvol: 4.8 - 4.8 mGy. DLP: 482 mGy-cm.. LIMITATIONS: None. FINDINGS: LOWER CHEST: No significant findings. No nodules or infiltrates. LIVER: Normal size. No masses. No dilated ducts. SPLEEN: Normal size. No focal lesions. PANCREAS: No masses. No significant calcifications. No adjacent inflammation or peripancreatic fluid collections. Pancreatic duct not dilated. GALLBLADDER: No identified stones by CT criteria. No inflammatory changes to suggest cholecystitis. ADRENAL GLANDS: No significant masses or asymmetry. RIGHT KIDNEY AND URETER: No solid masses. No significant calcifications. No hydronephrosis or hyd roureter. LEFT KIDNEY AND URETER: No solid masses. No significant calcifications. No hydronephrosis or hydr oureter. AORTA AND VESSELS: No aneurysm. No dissection. Renal arteries, SMA, celiac without stenosis. RETROPERITONEUM: No retroperitoneal adenopathy, hemorrhage or masses. BOWEL AND PERITONEAL CAVITY: No masses or inflammatory changes. No free fluid or peritoneal masses. APPENDIX: Normal. PELVIS: No mass. No free fluid. Normal bladder. ABDOMINAL WALL: No masses. No hernias. BONES: No significant or acute findings. OTHER: No other significant finding. IMPRESSION: NO SIGNIFICANT OR ACUTE FINDING IN THE ABDOMEN OR PELVIS ON CT SCAN WITH IV CONTRAST. TECHNICAL DOCUMENTATION: JOB ID: [id number] Quality ID # [id number]: Final reports with documentation of one or more dose reduction techniques (e.g., Au tomated exposure control, adjustment of the mA and/or kV according to patient size, use of iterative reconstruction technique) 2010 [employer]- All Rights Reserved Reading location - IP/workstation name: [email or web address]
[2020-04-21 19:27] LABS: ABSOLUTE EOSINOPHILS # (AUTO) 0.1 10^3/uL (0.0-0.6); ABSOLUTE LYMPHOCYTES (AUTO) 1.7 10^3/uL (0.5-4.7); ABSOLUTE MONOCYTES (AUTO) 0.7 10^3/uL (0.1-1.4); ABSOLUTE NEUT (AUTO) 6.2 10^3/uL (1.7-8.2); BASOPHILS % (AUTO) 0.1 % (0-2); EOSINOPHILS % (AUTO) 1.1 % (0-6); HEMATOCRIT 39.6 % (37.9-51.0); LYMPHOCYTES % (AUTO) 19.4 % (13-45); MEAN CORPUSCULAR HEMOGLOBIN 31.8 pg (27.0-33.4); MEAN CORPUSCULAR HGB CONC 35.2 g/dL (32.0-36.0); MEAN CORPUSCULAR VOLUME 90 fl (80-97); MONOCYTES % (AUTO) 8.1 % (3-13); PLATELET COUNT 198 10^3/uL (150-450); RED BLOOD COUNT 4.39 10^6/uL (4.35-5.55); RED CELL DISTRIBUTION WIDTH 13.6 % (11.5-14.0); SEGMENTED NEUTROPHILS % (AUTO) 71.3 % (42-78); TOTAL CELLS COUNTED % (AUTO) 100 %; WHITE BLOOD COUNT 8.6 10^3/uL (4.0-10.5)
[2020-04-21 20:07] VITALS: BP 126/76
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
== END 2020-04-21 20:13 | disposition home or self-care (01) ==
LOC: ER 15:41
DX: S37.012A Minor contusion of left kidney, initial encounter (principal); W50.0XXA Accidental hit or strike by another person, initial encounter; Y93.71 Activity, boxing; I10 Essential (primary) hypertension; F15.11 Other stimulant abuse, in remission; F13.11 Sedative, hypnotic or anxiolytic abuse, in remission; F19.11 Other psychoactive substance abuse, in remission; Z87.891 Personal history of nicotine dependence; Z91.040 Latex allergy status; Z88.2 Allergy status to sulfonamides
CPT/HCPCS: 36415; 74177; 80053; 81001; 85025; 99284